=== PATIENT | male | born 1955 | race Caucasian/White ===

== ENCOUNTER → 2016-06-29 | Outpatient (CLI) | payer OTHER ==
[~2016-06-29] MED LIST: ACET1TAB84 PO; ASPEC81 PO; FEXO1TAB46 PO; FLUT0.15 NAE; LATA0.009 OPB; MULT-506 PO; OMEP40CA PO; SENNTAB23
== END | disposition home or self-care (01) ==
LOC: C.LABBC 12:09
PROVIDERS: ATTEND Nurse Practitioner Adult Health
DX: Z11.59 Encounter for screening for other viral diseases (principal); Z85.46 Personal history of malignant neoplasm of prostate

== ENCOUNTER → 2016-08-28 | Outpatient (CLI) | payer OTHER ==
[2016-08-28 13:44] LABS: BASO % 0.4 %; BASO ABS # 0.02 K/uL (0-0.2); COMPLETE YES; EOS % 2.2 %; HEMATOCRIT 40.2 % (42-52); IG% 0.2 %; LYMPH % 27.6 %; MEAN CELL VOLUME 93.9 fL (80-100); MEAN CORPUSCULAR HEMOGLOBIN 31.8 pg (25-34); MEAN CORPUSCULAR HGB CONC 33.8 g/dl (32-36); MEAN PLATELET VOLUME 9.6 fL (7.4-10.4); NEUT % 56.6 %; PLATELET COUNT 219 K/uL (130-400); RED BLOOD COUNT 4.28 M/uL (4.7-6.1); WHITE BLOOD COUNT 5.08 K/uL (4.8-10.8)
[2016-08-28 14:51] LABS: ALT/SGPT 37 U/L (12-78); BLOOD UREA NITROGEN 11 mg/dl (7-18); BUN/CREATININE RATIO 13.3 (10-20); CARBON DIOXIDE 27 mmol/L (21-32); CHLORIDE 108 mmol/L (98-107); CHOLESTEROL 193 mg/dl (0-200); CREATININE 0.85 mg/dl (0.60-1.40); GLUCOSE 107 mg/dl (70-99); POTASSIUM 3.9 mmol/L (3.5-5.1); SODIUM 142 mmol/L (136-145)
[2016-08-28 14:57] LABS: ALB/GLOB RATIO 0.9 (0.9-2); ALKALINE PHOSPHATASE 80 U/L (45-117); AST/SGOT 23 U/L (15-37); HDL CHOLESTEROL 32 mg/dl; LDL CHOLESTEROL CALCULATED 105 mg/dl; TRIGLYCERIDES 279 mg/dl (0-150); VERY LOW DENSITY LIPOPROT CALC 56 mg/dl
[2016-08-28 17:35] LABS: CALCIUM 8.6 mg/dl (8.5-10.1)
== END | disposition home or self-care (01) ==
LOC: C.LABBC 10:46
PROVIDERS: ATTEND Nurse Practitioner Adult Health
DX: D64.9 Anemia, unspecified (principal); E78.5 Hyperlipidemia, unspecified

== ENCOUNTER → 2016-09-17 | Outpatient (CLI) | payer OTHER | END | disposition home or self-care (01) | LOC: C.LABBC 14:17 | PROVIDERS: ATTEND Urology | DX: C61 Malignant neoplasm of prostate (principal) ==

== ENCOUNTER → 2017-04-23 | Outpatient (CLI) | payer OTHER ==
[2017-04-23 13:54] LABS: BASO % 0.4 %; BASO ABS # 0.02 K/uL (0-0.2); EOS % 1.9 %; EOS ABS # 0.09 K/uL (0-0.5); HEMATOCRIT 41.7 % (42-52); HEMOGLOBIN 14.2 g/dL (14.0-18.0); IG# 0.01 K/uL (0.00-0.02); LYMPH % 26.7 %; LYMPH ABS # 1.24 K/uL (1.2-3.4); MEAN CELL VOLUME 92.5 fL (80-100); MEAN CORPUSCULAR HEMOGLOBIN 31.5 pg (25-34); MEAN CORPUSCULAR HGB CONC 34.1 g/dl (32-36); MEAN PLATELET VOLUME 9.8 fL (7.4-10.4); MONO % 14.6 %; MONO ABS # 0.68 K/uL (0.11-0.59); NEUT % 56.2 %; NEUT ABS # 2.61 K/uL (1.4-6.5); PLATELET COUNT 234 K/uL (130-400); RED CELL DISTRIBUTION WIDTH CV 12.9 % (11.5-14.5); RED CELL DISTRIBUTION WIDTH SD 43.5 fL (36.4-46.3); WHITE BLOOD COUNT 4.65 K/uL (4.8-10.8)
[2017-04-23 14:00] LABS: HEMOGLOBIN A1C 6.2 % (4.5-5.6)
[2017-04-23 14:23] LABS: ALBUMIN 3.7 gm/dl (3.4-5.0); ALT/SGPT 52 U/L (12-78); AST/SGOT 28 U/L (15-37); BLOOD UREA NITROGEN 13 mg/dl (7-18); CALCIUM 8.6 mg/dl (8.5-10.1); CARBON DIOXIDE 29 mmol/L (21-32); CREATININE 0.78 mg/dl (0.60-1.40); GLUCOSE 103 mg/dl (70-99); POTASSIUM 4.4 mmol/L (3.5-5.1); SODIUM 138 mmol/L (136-145)
[2017-04-23 14:34] LABS: ALKALINE PHOSPHATASE 99 U/L (45-117); TOTAL PROTEIN 7.8 gm/dl (6.4-8.2)
== END | disposition home or self-care (01) ==
LOC: C.LABBC 10:28
PROVIDERS: ATTEND Nurse Practitioner Adult Health
DX: R20.0 Anesthesia of skin (principal); R20.2 Paresthesia of skin; D64.9 Anemia, unspecified

== ENCOUNTER → 2017-05-20 | Outpatient (CLI) | payer OTHER | END | disposition home or self-care (01) | LOC: C.PATHSPEC 17:23 | PROVIDERS: ATTEND Podiatrist Foot & Ankle Surgery | DX: B07.9 Viral wart, unspecified (principal) ==

== ENCOUNTER → 2017-05-27 | Outpatient (CLI) | payer OTHER | END | disposition home or self-care (01) | LOC: C.LABBC 12:58 | PROVIDERS: ATTEND Urology | DX: C61 Malignant neoplasm of prostate (principal) ==

== ENCOUNTER → 2017-06-03 | Outpatient (CLI) | payer OTHER ==
[2017-06-03 17:17] LABS: BASO % 0.4 %; BASO ABS # 0.02 K/uL (0-0.2); EOS % 1.3 %; EOS ABS # 0.07 K/uL (0-0.5); HEMATOCRIT 42.5 % (42-52); HEMOGLOBIN 14.2 g/dL (14.0-18.0); IG# 0.01 K/uL (0.00-0.02); LYMPH % 25.1 %; LYMPH ABS # 1.31 K/uL (1.2-3.4); MEAN CELL VOLUME 93.6 fL (80-100); MEAN CORPUSCULAR HEMOGLOBIN 31.3 pg (25-34); MEAN CORPUSCULAR HGB CONC 33.4 g/dl (32-36); MEAN PLATELET VOLUME 9.7 fL (7.4-10.4); MONO % 12.7 %; MONO ABS # 0.66 K/uL (0.11-0.59); NEUT % 60.3 %; NEUT ABS # 3.14 K/uL (1.4-6.5); PLATELET COUNT 238 K/uL (130-400); RED CELL DISTRIBUTION WIDTH CV 13.2 % (11.5-14.5); RED CELL DISTRIBUTION WIDTH SD 45.2 fL (36.4-46.3); WHITE BLOOD COUNT 5.21 K/uL (4.8-10.8)
== END | disposition home or self-care (01) ==
LOC: C.LABBC 12:52
PROVIDERS: ATTEND Nurse Practitioner Family
DX: R51 Headache (principal); R53.83 Other fatigue

== ENCOUNTER → 2017-07-02 | Outpatient (CLI) | payer OTHER ==
[~2017-07-02] MED LIST changes: +DICL50TA3 PO; +LOSA1TAB PO
--- NOTE | 2017-07-02 12:40 | DIAGNOSTIC IMAGING REPORT ---
L-SPINE FLEX/EXT BENDING MIN 6 CLINICAL HISTORY: 61 years-old Male presenting with LUMBAGO, LUMBAR PAIN. TECHNIQUE: Frontal, bilateral oblique, lateral, and coned in lateral views of the lumbar spine were obtained. COMPARISON: 03/22/2013. FINDINGS: Post surgical changes of bilateral transpedicular screw and jesus alberto fixation of L2-L5 with interbody spacer at L4-5. Bunionectomy defects from L2 to L5 suggested. There is slight anterolisthesis of L3 on L4, unchanged. No gross evidence of hardware breakage. No significant change in alignment. Persistent levocurvature of the lumbar spine centered at L1-2. Allowing for scoliotic curvature, vertebral bodies maintain normal heights. Intervertebral disc height loss at several levels as well as anterior osteophytosis and vacuum disc phenomenon noted. Facet arthropathy suggested in the lower lumbar spine. Is difficult to determine the degree of osseous neural foraminal narrowing, though this is suspected at L5-S1. Coil surgical wicho project over the left lower quadrant likely indicating prior hernia repair. IMPRESSION: 1. Surgical changes of L2-L5 posterior fusion with laminectomy defects. No change in alignment or gross hardware complication. 2. No radiographic evidence of compression deformity. 3. Osseous neural foraminal narrowing may be present at L5-S1. Evaluation for neural foraminal narrowing complicated by levocurvature of the spine. Electronically signed by: Satya Vickers M.D. 07/02/2017 12:39 PM Dictated Date/Time: 07/02/2017 12:19 PM
== END | disposition home or self-care (01) ==
LOC: C.RADBC 12:02
PROVIDERS: ATTEND Physician Assistant
DX: M54.16 Radiculopathy, lumbar region (principal); Z98.1 Arthrodesis status; M99.73 Connective tissue and disc stenosis of intervertebral foramina of lumbar region

== ENCOUNTER → 2017-07-15 | Outpatient (CLI) | payer OTHER ==
[~2017-07-15] VITALS: Ht 180.3 cm; Wt 89.2 kg
[~2017-07-15] MED LIST changes: -SENNTAB23
[2017-07-15 15:36] VITALS: BP 159/78; PULSE 79; Ht 180.3 cm; Wt 89.2 kg
== END | disposition home or self-care (01) ==
LOC: C.NEUR 15:15
PROVIDERS: ATTEND Internal Medicine Pulmonary Disease
DX: G47.33 Obstructive sleep apnea (adult) (pediatric) (principal); Z72.821 Inadequate sleep hygiene; K21.9 Gastro-esophageal reflux disease without esophagitis; D64.9 Anemia, unspecified; M19.90 Unspecified osteoarthritis, unspecified site; Z85.46 Personal history of malignant neoplasm of prostate; Z98.1 Arthrodesis status; R53.83 Other fatigue

== ENCOUNTER → 2017-07-16 | Outpatient (CLI) | payer OTHER ==
--- NOTE | 2017-07-16 13:57 | DIAGNOSTIC IMAGING REPORT ---
ULTRASOUND SOFT TISSUES NECK CLINICAL HISTORY: Neck mass. This is hard and red, and has reportedly been present for one week. COMPARISON STUDY: No priors. FINDINGS: Real-time, grayscale, and color flow sonography of a palpable lump in the midline of the neck is performed at the indicated site of interest. There is a complex nonvascular lesion at this site, which measures 1.5 x 1.1 x 1.2 cm. This is located approximately 2 mm from the dermal surface. IMPRESSION: There is a complex nonvascular lesion at the site of interest which measures up to 1.5 cm. Given that this has reportedly been present for only one week, this likely represents a small hematoma, abscess, or infected cyst. Clinical correlation will be essential and clinical follow-up to resolution is recommended. If this fails to resolve over a reasonable time course then a repeat ultrasound with fine aspiration should be considered. Electronically signed by: Guy Henao M.D. 07/16/2017 1:56 PM Dictated Date/Time: 07/16/2017 1:47 PM
== END | disposition home or self-care (01) ==
LOC: C.ULTR 13:16
PROVIDERS: ATTEND Nurse Practitioner Family
DX: R22.1 Localized swelling, mass and lump, neck (principal)

== ENCOUNTER → 2017-07-19 | Outpatient (CLI) | payer OTHER | END | disposition home or self-care (01) | LOC: C.LABSPEC 17:34 | PROVIDERS: ATTEND Nurse Practitioner Family | DX: L72.3 Sebaceous cyst (principal) ==

== ENCOUNTER → 2017-08-03 | Outpatient (CLI) | payer OTHER ==
--- NOTE | 2017-08-04 05:52 | SPLIT NIGHT TECHNICIAN REPORT ---
[facility] Split Night Polysomnogram - Registered Nurse Practitioner Report Study date: 08/03/2017 Referring Physician: Dr. Yayo Oliver DO Name: ANYA GUERRERO Registered Nurse Practitioner: SRI Garcia. Date of : 1955 Height: 62 years, Height 5' 11" Sex: Male Weight: 196 lbs Age: 62 BMI: Medications: 27.33 Omeprazole 20 mg, Fluticasone Propionate 50 MCG/ACT, Voltaren 75 mg, Losartan Potassium 25 mg, Polyethylene Glycol 3350, Montelukast Sodium 10 mg, Aspirin 81 mg, Latanoprost 0.005%, Multi Vitamins, Tylenol Arthritis 650 mg Patient History 62 yr. old male here for a possible split night sleep study if AHI >15. Patient complains of loud snoring, witnessed apneas, EDS and HTN. Patients ESS 17/24. Parameters Monitored NPSG: E1-M2, E2-M1, Fp1-M2, Fp2-M1, F3-M2, F4-M2, F4-M1, C3-M2, C4-M2, C4-M1, O1-M2, O2-M2, O2-M1, T3-M2, T4-M1, P3-M2, P4-M1, CHIN1, CHIN2, HR, EKG, Legs, PFLOW, SNOR, FLOW, CFLOW, Tidal Volume, THOR, ABDO, SpO2, PLTH, CPRESS, ETCO2 Wave, ETCO2, pH SLEEP SUMMARY DATA DIAGNOSTIC TREATMENT Lights Out: 10:04:29 PM 12:30:29 AM Lights On: 12:22:59 AM 5:41:29 AM Total Recording Time (TRT): 138.5 min. 311.5 min. Total Sleep Time (TST): 126.0 min. 303.0 min. NREM Time: 126.0 min. 231.0 min. REM Time: 0.0 min. 72.0 min. Sleep Period Time (SPT): 131.5 min. 310.5 min. Sleep Efficiency (SE): 91 % 97 % Sleep Latency: 7.0 min. 0.5 min. Arousal Index: 5.2 5.9 PAP Treatment Levels: 4, 5, 6, 7, 8, 9, 10, 11, 12, 13, 14 * Optimal Pressure(s) SLEEP STAGING DATA DIAGNOSTIC TREATMENT Duration (min) TST % Duration (min) TST % Stage Wake: 12.5 min. -- 8.0 min. -- WASO: 5.5 min. -- 7.5 min. -- NREM: 126.0 min. 100 % 231.0 min. 76 % Stage N1: 6.5 min. 5 % 12.5 min. 4 % Stage N2: 102.0 min. 81 % 205.5 min. 68 % Stage N3: 17.5 min. 14 % 13.0 min. 4 % REM: 0.0 min. 0 % 72.0 min. 24 % POSITIONAL DATA Event Count Index Event Count Index Supine: 7 29 53 36.2 Supine NREM: 7 29.0 16 23.5 Supine REM: N/A N/A 37 47 Non-Supine: 36 19.4 43 12.0 Non-Supine NREM: 36 19.4 25 7.9 Non-Supine REM: N/A N/A 18 43.2 AROUSAL SUMMARY DATA: Event Count Index Event Count Index Apnea Arousals: 0 1.4 2 4.6 Hypopnea Arousals: 2 1.0 5 1.0 Snore Arousals: 5 2.4 3 0.6 PLM Arousals: 1 0.5 3 0.6 Non-Specific Arousals: 1 0.5 2 0.4 Total Arousals: 11 5.2 30 5.9 MYOCLONUS (PLM) Event Count Index Event Count Index PLM: 6 2.9 11 2.2 PLM AROUSAL: 1 0.5 3 0.6 PLM W/O AROUSAL 6 2.9 8 1.6 PLM W/RESP EVENT 0 0.0 0 0.0 MYOCLONUS (PLM) Event Count Index Event Count Index LM: 4 11.0 41 8.1 LM AROUSAL: 4 1.9 16 3.2 LM W/O AROUSAL LM W/RESP EVENT LM NON SPECIFIC 20 9.5 27 5.3 HEART RATE DATA DIAGNOSTIC TREATMENT Sleep (bpm): 58 54 REM (bpm): N/A 93 NREM (bpm): 92 94 Tachycardia Count: 0 0 Tachycardia Duration: 0.00 0 Bradycardia Count: 0 0 Bradycardia Duration: 0.00 0 DIAGNOSTIC PORTION TREATMENT PORTION RESPIRATORY DATA Event Count Index Event Count Index AHI: -- 20.5 -- 19.0 RDI: -- 20.5 -- 19 Obstructive Apnea: 3 1.4 15 3.0 Central Apnea: 0 0.0 6 1.2 Mixed Apnea: 0 0.0 2 0.4 Hypopnea: 40 19.0 73 14.5 RERA: 0 0.0 0 0.0 Total Apneas: 3 1.4 23 4.6 RESPIRATORY DATA REM NREM SLEEP REM NREM SLEEP Supine Position: Obstructive Apneas: N/A 0 0 1 0 1 Central Apneas: N/A 0 0 0 4 4 Mixed Apneas: N/A 0 0 1 1 2 Hypopneas: N/A 7 7 35 11 46 RERA N/A 0 0 0 0 0 Total Supine Events: N/A 7 7 37 16 53 Supine AHI: N/A 29.0 29 47 23.5 36.2 Supine RDI: N/A 29.0 29.0 47.2 23.5 36.2 REM NREM SLEEP REM NREM SLEEP Non-Supine Position: Obstructive Apneas: N/A 3 3 11 3 14 Central Apneas: N/A 0 0 0 2 2 Mixed Apneas: N/A 0 0 0 0 0 Hypopneas: N/A 33 33 7 20 27 RERA N/A 0 0 0 0 0 Total Supine Events: N/A 36 36 18 25 43 Supine AHI: N/A 19.4 19.4 43.2 7.9 12.0 Supine RDI: N/A 19.4 19.4 43.2 7.9 12.0 OXYGEN DESTAURATION DATA: Event Count Index Event Count Index REM Desaturations: N/A N/A 35 29.2 NREM Desaturations: 43 20.5 35 9.1 SNORE DATA DIAGNOSTIC TREATMENT Snore Time: 2.0 12:30:59 AM Snore TST%: 1 2 Snore Arousal Count: 5 3 Snore Arousal Index: 2.4 0.6 Desaturation Event Summary: Minimum %SpO2 Event Count Mean/Min/Max Duration(sec.) Desaturation Index % Time In Bed > 90 112 31.0 / 9.5 / 60.0 16.5 90.5 86 - 90 12 20.8 / 9.5 / 29.8 18.3 8.7 81 - 85 0 N/A 0.0 0.7 76 - 80 0 N/A 0.0 0.0 71 - 75 0 N/A 0.0 0.0 66 - 70 0 N/A 0.0 0.0 61 - 65 0 N/A 0.0 0.0 56 - 60 0 N/A 0.0 0.0 51 - 55 0 N/A 0.0 0.0 < 50 0 N/A 0.0 0.0 OXYGEN SATURATION DATA DIAGNOSTIC TREATMENT SpO2 Mean Sleep: 92 % 94 % SpO2 Mean REM: N/A % 93 % SpO2 Mean NREM: 92 % 94 % SpO2 Minimum Sleep: 80 % 81 % SpO2 Minimum REM: N/A % 81 % SpO2 Minimum NREM: 80 % 86 % Time Below 90% (TST): 11.9 9.3 Time Below 88% (TST): 3.9 4.5 Total REM NREM Awake <50% 0.0 min. 0.0 min. 0.0 min. 0.0 min. 51 - 60% 0.0 min. 0.0 min. 0.0 min. 0.0 min. 61 - 70% 0.0 min. 0.0 min. 0.0 min. 0.0 min. 71 - 80% 0.1 min. 0.0 min. 0.1 min. 0.0 min. 81 - 90% 42.6 min. 10.7 min. 25.6 min. 6.3 min. 91 - 100% 406.8 min. 61.3 min. 331.3 min. 14.2 min. Average 93 93 93 92 Minimum SpO2 80 81 80 87 Desaturation Event Index 15.2 29.2 13.1 5.9 # Desat. Events below 89% 39 9 30 0 Time(%) with Saturation below 89% 3.2 1.2 1.8 0.2 Time(min.) with Saturation below 89% 14.6 5.6 8.3 0.7 Recording Registered Nurse Practitioner Comments: Mr. Guerrero slept in the left and supine positions. Cardiac arrhythmia PVC's and PLMs noted. No bruxism noted. Snoring was noted and scored as a 3 on a scale of 0 through 5. (0=no snoring, 5=snoring loud enough to be heard through a closed door or down the [place] way) At 12:30 am , Mr. Guerrero met specific Split-Night criteria during the diagnostic portion of this study. CPAP was initiated at +4 CMH2O room air and up-titrated to a level of +14 CMH2O Cflex 1. Quick increases were made towards the end of the study due to REM supine. A medium [place] and Learn[employer]kel simplus, was used during titration. Mr. Guerrero did not wake to use the restroom during the night.Mr. Guerrero stated, "(Example) I did not sleep as well as I do when I am in my own bed". The final report will be interpreted and signed by a sleep physician. The completed physician report will then be placed in the patient medical record. Therapy Event: Therapy (cm H20) 0 4 5 6 7 8 Total Time at Pressure (min.) 138.5 7.5 40.0 68.7 7.5 31.7 TST at Pressure (min.) 126.0 7.0 39.5 65.7 7.5 30.2 # Periods 1 1 1 1 1 1 Sleep Onset (min.) 7.0 0.5 0.0 0.0 0.0 0.0 REM Onset (min.) N/A N/A N/A 68.0 0.0 0.0 Sleep Efficiency % 91 93 98 95 100 95 Wakefulness (%) 9.0 6.7 1.3 4.4 0.0 4.7 Wakefulness (min.) 12.5 0.5 0.5 3.0 0.0 1.5 NREM 1 (%) 4.7 13.4 1.3 5.8 0.0 7.9 NREM 1 (min.) 6.5 1.0 0.5 4.0 0.0 2.5 NREM 2 (%) 73.6 80.0 97.5 88.9 0.0 34.3 NREM 2 (min.) 102.0 6.0 39.0 61.0 0.0 10.9 NREM 3 (%) 12.6 0.0 0.0 0.0 0.0 0.0 NREM 3 (min.) 17.5 0.0 0.0 0.0 0.0 0.0 REM (%) 0.0 0.0 0.0 0.9 100.0 53.1 REM (min.) 0.0 0.0 0.0 0.6 7.5 16.9 # Arousals 11 0 8 7 0 2 Arousal Index 5.2 0.0 12.2 6.4 0.0 4.0 # Snore 96 0 76 58 9 25 Snore Index 45.7 0.0 115.5 53.0 71.9 49.6 AHI 20.5 17.2 9.1 11.0 63.9 29.8 AHI Supine 29.0 N/A N/A N/A N/A N/A AHI Non-Supine 19.4 17.2 9.1 11.0 63.9 29.8 NREM AHI 20.5 17.2 9.1 9.2 N/A 31.4 REM AHI N/A N/A N/A 192.2 63.9 28.5 RDI 20.5 17.2 9.1 11.0 63.9 29.8 # Obstructive 3 0 0 4 5 5 # Central Ap 0 0 0 1 0 1 # Mixed 0 0 0 0 0 0 # Hypopneas 40 2 6 7 3 9 RERAS 0 0 0 0 0 0 Total Respiratory Events 43 2 6 12 8 15 Time Below SpO2 89.00% (min.) 7.6 0.0 0.0 0.6 1.2 0.2 Mean NREM SpO2 (%) 92 92 93 93 N/A 94 Mean REM SpO2 (%) N/A N/A N/A 90 92 94 Mean Sleep SpO2 (%) 92 92 93 93 92 94 Min NREM SpO2 (%) 80 90 90 86 N/A 88 Min REM SpO2 (%) N/A N/A N/A 88 85 91 Position Supine (min.) 14.5 0.0 0.0 0.0 0.0 0.0 Position Non-supine (min.) 111.5 7.0 39.5 65.7 7.5 30.2 LM Index Sleep 13.8 0.0 30.4 15.5 0.0 6.0 LM Index NREM 13.8 0.0 30.4 15.7 N/A 0.0 LM Index REM N/A N/A N/A 0.0 0.0 10.7 Mean Heart Rate (bpm) 58 57 57 55 56 54 Min Heart Rate (bpm) 52 55 54 49 50 47 Therapy (cm H20) 9 10 11 12 13 14 Total Time at Pressure (min.) 77.4 13.1 7.6 16.5 5.2 35.8 TST at Pressure (min.) 76.9 13.1 7.6 16.0 4.7 34.8 # Periods 1 1 1 1 1 1 Sleep Onset (min.) 0.0 0.0 0.0 0.0 0.0 0.0 REM Onset (min.) 71.1 0.0 0.0 0.0 0.0 0.3 Sleep Efficiency % 99 100 100 97 90 97 Wakefulness (%) 0.6 0.0 0.0 3.0 9.6 2.8 Wakefulness (min.) 0.5 0.0 0.0 0.5 0.5 1.0 NREM 1 (%) 1.9 3.8 0.0 3.0 3.7 5.0 NREM 1 (min.) 1.5 0.5 0.0 0.5 0.2 1.8 NREM 2 (%) 72.5 0.0 0.0 0.0 0.0 90.8 NREM 2 (min.) 56.1 0.0 0.0 0.0 0.0 32.5 NREM 3 (%) 16.8 0.0 0.0 0.0 0.0 0.0 NREM 3 (min.) 13.0 0.0 0.0 0.0 0.0 0.0 REM (%) 8.2 96.2 100.0 93.9 86.7 1.4 REM (min.) 6.3 12.6 7.6 15.5 4.5 0.5 # Arousals 5 2 1 2 0 3 Arousal Index 3.9 9.2 7.9 7.5 0.0 5.2 # Snore 21 7 5 4 1 15 Snore Index 16.4 32.0 39.7 15.0 12.7 25.9 AHI 9.4 50.4 47.6 33.8 63.6 17.2 AHI Supine 61.2 50.4 47.6 33.8 63.6 17.2 AHI Non-Supine 0.0 N/A N/A N/A N/A N/A NREM AHI 3.4 120.0 N/A 120.0 309.0 15.7 REM AHI 75.8 47.6 47.6 31.0 53.0 120.0 RDI 9.4 50.4 47.6 33.8 63.6 17.2 # Obstructive 0 1 0 0 0 0 # Central Ap 0 0 0 0 0 4 # Mixed 0 1 0 0 0 1 # Hypopneas 12 9 6 9 5 5 RERAS 0 0 0 0 0 0 Total Respiratory Events 12 11 6 9 5 10 Time Below SpO2 89.00% (min.) 1.3 2.3 0.7 0.0 0.0 0.0 Mean NREM SpO2 (%) 94 91 N/A 97 93 95 Mean REM SpO2 (%) 92 93 93 94 94 95 Mean Sleep SpO2 (%) 94 92 93 94 94 95 Min NREM SpO2 (%) 91 89 N/A 96 92 90 Min REM SpO2 (%) 81 83 84 89 91 93 Position Supine (min.) 11.8 13.1 7.6 16.0 4.7 34.8 Position Non-supine (min.) 65.2 0.0 0.0 0.0 0.0 0.0 LM Index Sleep 5.5 4.6 7.9 3.8 0.0 3.4 LM Index NREM 5.1 0.0 N/A 0.0 0.0 3.5 LM Index REM 9.5 4.8 7.9 3.9 0.0 0.0 Mean Heart Rate (bpm) 53 51 51 51 53 52 Min Heart Rate (bpm) 46 45 46 45 49 47
== END | disposition home or self-care (01) ==
LOC: C.NEUR 21:00
PROVIDERS: ATTEND Internal Medicine Pulmonary Disease
DX: G47.33 Obstructive sleep apnea (adult) (pediatric) (principal); Z72.821 Inadequate sleep hygiene

== ENCOUNTER 2018-05-27 10:20 | Inpatient (IN) ==
--- NOTE | 2018-05-27 13:58 | Anesthesiology Consultation ---
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 History Surgery Operation Date: 05/27/18 10:20 Proposed Procedures p Left Shoulder Incision and Drainage - Patel Miguel DO Height/Weight Height: 1.8 m Weight: 83.9 kg Allergies Allergy/AdvReac Type Severity Reaction Status Date / Time amoxicillin Allergy Unknown RECTAL Verified 04/28/18 08:28 BLEEDING clavulanic acid Allergy Unknown RECTAL Verified 04/28/18 08:28 BLEEDING Medications Home Medications Medication Instructions Recorded Confirmed Last Taken aspirin 81 mg tablet,delayed 81 mg PO QPM 12/13/17 04/28/18 04/21/18 release fexofenadine 180 mg tablet 180 mg PO QPM 12/13/17 04/28/18 04/27/18 losartan 25 mg tablet 25 mg PO QAM 12/13/17 04/28/18 04/27/18 multivitamin tablet 1 tab PO QAM 12/13/17 04/28/18 04/27/18 omeprazole 40 mg capsule,delayed 40 mg PO QAM 12/13/17 04/28/18 04/28/18 04:30 release polyethylene glycol 3350 17 1 gm PO QAM gm 12/13/17 04/28/18 04/27/18 gram/dose oral powder latanoprost 0.005 % eye drops 1 drops OP QPM 01/24/18 04/28/18 04/27/18 acetaminophen [Tylenol] 325 mg PO Q6H PRN 04/26/18 04/28/18 Unknown oxycodone-acetaminophen 1 tab PO Q6H PRN #40 tab 04/28/18 04/28/18 Unknown Past Medical History Medical History Hyperglycemia Arthritis Glaucoma Hypertension Chronic back pain Degenerative disc disease GERD (gastroesophageal reflux disease) Lumbar stenosis Osteoarthritis Prostate cancer Scoliosis Sleep apnea CPAP Past Family History Family History Father Coronary heart disease Parkinson disease Sister Family history of diabetes mellitus Mother Family history of diabetes mellitus Other No pertinent family history Past Surgical History Surgical History S/P arthroscopy of shoulder Left shoulder on 04/28/2018 History of cardiac cath APPROX 10 YEARS AGO - [facility] - CP - NO STENTS/ANGIOPLASTY - DOES NOT FOLLOW W/ CARDIO History of colonoscopy History of esophagogastroduodenoscopy (EGD) History of herniorrhaphy X 2; UMBILICAL History of lumbar spinal fusion History of prostatectomy LAPAROSCOPIC History of tonsillectomy History of tooth extraction History of total shoulder replacement RT Past Anesthesia History No Hx of Anesthesia Complications and No Family Hx of Anesthesia Complications History of PONV No Motion Sickness Screening History of Motion Sickness: No Social History Smoking Status: Never smoker Hx Alcohol Use: No Hx Substance Use: No substance use type: does not use Exercise / Class Metabolic Activity II 4-5 Yardwork/Stairs/Walk up hill Testing Electrocardiogram Date: 04/22/18 Findings: + NSR @ (71) Laboratory Results Laboratory Tests 04/22/18 04/22/18 12:28 12:28 WBC 4.65 L Hgb 13.4 L Hct 39.6 L Plt Count 243 Sodium 141 Potassium 3.9 Chloride 108 H Carbon Dioxide 29 BUN 17 Creatinine 0.77 Glucose 90
--- NOTE | 2018-05-27 16:00 | History & Physical Report ---
Date of Service May 27, 2018 Assessment & Plan (1) Abscess of left shoulder: We will proceed with an I&D of the portal site today. Afterwards I will probably keep him overnight for a couple doses of IV antibiotics. He can then be discharged to home tomorrow on oral antibiotics. He and his understand the risks benefits and alternatives to the procedure and are electing to proceed. Present on Admission?: Yes History of Present Illness Primary Care Provider: Sergey Timmons, III, LAUNDRY WORKER Abhijit is a pleasant 62-year-old male who underwent a arthroscopic medium-sized rotator cuff repair on April 28, 2018. He initially was doing well. Unfortunately he is noticed some redness and swelling of his far anterior portal site. He has been able to continue to participate well with physical therapy but the redness at the portal sites been concerning. He came back to my office and I started him on Keflex. I also aspirated it in the office. Unfortunately the abscess has returned. It is completely superficial directly at the anterior portal. He was admitted to the hospital for an I&D and some IV antibiotics. Allergies Allergy/AdvReac Type Severity Reaction Status Date / Time amoxicillin Allergy Unknown RECTAL Verified 04/28/18 08:28 BLEEDING clavulanic acid Allergy Unknown RECTAL Verified 04/28/18 08:28 BLEEDING Home Medications Home Medications Medication Instructions Recorded Confirmed Type aspirin 81 mg tablet,delayed 81 mg PO QPM 12/13/17 05/27/18 History release fexofenadine 180 mg tablet 180 mg PO QPM 12/13/17 05/27/18 History losartan 25 mg tablet 25 mg PO QAM 12/13/17 05/27/18 History multivitamin tablet 1 tab PO QAM 12/13/17 05/27/18 History omeprazole 40 mg capsule,delayed 40 mg PO QAM 12/13/17 05/27/18 History release polyethylene glycol 3350 17 1 gm PO QAM gm 12/13/17 05/27/18 History gram/dose oral powder latanoprost 0.005 % eye drops 1 drops OP QPM 01/24/18 05/27/18 History acetaminophen [Tylenol] 325 mg PO Q6H PRN 04/26/18 05/27/18 History oxycodone-acetaminophen 1 tab PO Q6H PRN #40 tab 04/28/18 05/27/18 Rx Past Med/Surg History Medical History Hyperglycemia Arthritis Glaucoma Hypertension Chronic back pain Degenerative disc disease GERD (gastroesophageal reflux disease) Lumbar stenosis Osteoarthritis Prostate cancer Scoliosis Sleep apnea CPAP Surgical History S/P arthroscopy of shoulder Left shoulder on 04/28/2018 History of cardiac cath APPROX 10 YEARS AGO - [facility] - CP - NO STENTS/ANGIOPLASTY - DOES NOT FOLLOW W/ CARDIO History of colonoscopy History of esophagogastroduodenoscopy (EGD) History of herniorrhaphy X 2; UMBILICAL History of lumbar spinal fusion History of prostatectomy LAPAROSCOPIC History of tonsillectomy History of tooth extraction History of total shoulder replacement RT Family History Father Coronary heart disease Parkinson disease Sister Family history of diabetes mellitus Mother Family history of diabetes mellitus Other No pertinent family history Social History Communication Ability: Effective Beliefs That Will Affect Care: None marital status: Current Living Situation: Family current occupational status: employed current occupation: [employer] Other Information That Helps Us Care for You: No Feels Safe at Home: Yes Safety Concerns: Feels Safe At This Time Smoking Status: Never smoker Hx Alcohol Use: No Hx Substance Use: No Review of Systems All systems reviewed & are unremarkable except as noted in HPI & below Physical Exam Vital Signs (Past 24 Hours): Last Vital Signs Temp 36.8 C 05/27/18 15:00 Pulse 70 05/27/18 15:00 Resp 16 05/27/18 15:00 BP 121/79 05/27/18 15:00 Pulse Ox 96 05/27/18 15:00 Musculoskeletal: On physical examination of the left shoulder. The anterior portal site is red and indurated. It is painful to hard touch. The rest of the shoulder looks good. He has no signs of infection of the remainder of her shoulder.
[2018-05-27] MEDS ORDERED: BUPIVACAINE 0.25% 30 ML VIAL ONE (16:14)
[2018-05-27] MEDS ORDERED: EPINEPHrine INJ 1 MG/ML AMP ONE (16:14)
[2018-05-27] MEDS ORDERED: CEFAZOLIN 2,000 MG/15 ML IV PUSH IV ONE (16:25)
[2018-05-27] MEDS ORDERED: LIDOCAINE HCL 1% 20 ML VIAL ONE (16:42)
--- NOTE | 2018-05-27 16:58 | Operative Report ---
Post Operative Report Pre & Post Diagnosis Operation Date: 05/27/18 10:20 Pre-Op Diagnosis: Abscess left shoulder Post-Op Diagnosis: Abscess left shoulder Procedure Operation Date: 05/27/18 10:20 Actual Procedures p Left Shoulder Incision and Drainage(Left) - Patel Miguel DO Surgeon Patel Miguel DO Delivery And Installation Subcontractor None Estimated Blood Loss 10 Findings Consistent with Post-Op Diagnosis Specimens Abscess culture Indications Abhijit is a pleasant 62-year-old male who underwent a left shoulder arthroscopic rotator cuff repair 4 weeks ago. He initially was doing well but he began having redness pain and swelling of the anterior portal site. I saw him in the office and start him on Keflex. Unfortunately the abscess continued. He came over to the operating room today for a local I&D of the abscess. Description of Procedure On May 27, 2018 he arrived at [facility]. He was seen in the preoperative holding area and the operative extremity identified and signed. He was taken back to the operating room laid on table in supine position. This was done under strict local. The left shoulder was prepped and draped in sterile fashion. A timeout was done. The patient and the operative extremity was properly identified. The surrounding soft tissues were injected with quarter percent Marcaine with epinephrine. Once proper anesthesia has been obtained the anterior portal was incised with a knife. Cultures were taken. There was some purulent discharge from the abscess. It did not appear to go deep into the shoulder. The wound was irrigated with a liter of normal saline solution. The portal site was then closed with 3-0 nylon suture. He was then given 2 g of Ancef immediately. A soft dressing was placed. He was then taken back to his hospital room. He tolerated the procedure well. I attest to the content of the Intraoperative Record and any orders documented therein. Any exceptions are noted below.
[2018-05-28] MEDS: CEFAZOLIN 2000MG 2,000 MG/15 ML SYR IV SCH ×2 (00:08→08:09)
[2018-05-28] MEDS: OXYCODONE/ACETAMINOPHEN 5mg/325mg TAB PO PRN ×2 (00:34→08:49)
[2018-05-28] MEDS ORDERED: CEFAZOLIN 2000MG 2,000 MG/15 ML SYR IV SCH (06:00)
--- NOTE | 2018-05-28 07:03 | Orthopedic Progress Note ---
Date of Service May 28, 2018 Assessment & Plan (1) Abscess of left shoulder: Overall he is doing fairly well. He will get a another dose of Ancef before discharge. I wrote him for Keflex and doxycycline to take for 3 weeks for broad-spectrum coverage. We will wait and see with the cultures grow. I will see him in the office in about 10-14 days as previously scheduled. Present on Admission?: Yes Subjective Abhijit was seen and examined at bedside this morning. Overall is doing very well. He has much less pain in his shoulder now that he had yesterday. He was able to get some sleep last night. He has no complaints. Physical Exam Vital Signs (Past 24 Hours): Last Vital Signs Temp 36.7 C 05/28/18 03:36 Pulse 75 05/28/18 03:36 Resp 16 05/28/18 03:36 BP 125/75 05/28/18 03:36 Pulse Ox 98 05/28/18 03:36 Musculoskeletal: On physical examination of the left shoulder, the dressing is clean and dry. He is wearing a sling as instructed. He is neurovascular intact. Results & Data Laboratory Results Cultures at this point are still pending.
--- NOTE | 2018-05-28 07:04 | Discharge Summary ---
Date of Service May 28, 2018 Admission HPI Per Admitting Provider Abhijit is a pleasant 62-year-old male who underwent a arthroscopic medium-sized rotator cuff repair on April 28, 2018. He initially was doing well. Unfortunately he is noticed some redness and swelling of his far anterior portal site. He has been able to continue to participate well with physical therapy but the redness at the portal sites been concerning. He came back to my office and I started him on Keflex. I also aspirated it in the office. Unfortunately the abscess has returned. It is completely superficial directly at the anterior portal. He was admitted to the hospital for an I&D and some IV antibiotics. Discharge Data Procedures Performed Operation Date: 05/27/18 10:20 Actual Procedures p Left Shoulder Incision and Drainage(Left) - Patel Miguel DO Hospital Course (1) Abscess of left shoulder: On May 27, [address] [facility] in the hospital and underwent an I&D of an abscess of his left shoulder without complication. It was done under local anesthetic. Postoperatively he was started on Ancef and kept overnight for observation. He was given an additional 2 doses of Ancef postoperatively. On postop day #1 he was doing very well. He was not having much pain in the shoulder. I placed him on broad-spectrum coverage including doxycycline and Keflex. He was discharged home. I will see him in the office in 10-14 days as previously scheduled.
--- NOTE | 2018-06-01 11:12 | Coding Query ---
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 Please assist us with the question(s) below: Please place an X in the parenthesis (x). If other, please document the finding: Depth of Drainage: ( ) Skin ( X) Skin and Subcutaneous Tissue ( ) Skin, Subcutaneous Tissue and Muscle ( ) Skin, Subcutaneous Tissue, Muscle and Bone ( ) Other (please specify): Thank you Negar ALEJANDRA
== END 2018-05-28 09:55 | disposition home or self-care (01) | DRG 857 ==
LOC: 3W → PREINTOOBSV 13:39

== ENCOUNTER 2019-01-26 08:04 | Inpatient (IN) ==
--- NOTE | 2019-01-12 15:17 | PAT Medication Instructions ---
Medication Instructions Date of Service January 12, 2019 Home Medications Medication Instructions Recorded celecoxib 100 mg capsule 100 mg PO BID #60 cap 11/22/18 gabapentin 600 mg tablet 600 mg PO TID #90 tab 12/27/18 aspirin 81 mg tablet,delayed release 81 mg PO HS fexofenadine 180 mg tablet 180 mg PO QPM multivitamin tablet 1 tab PO QAM polyethylene glycol 3350 17 gram/dose oral powder 17 gm PO QAM latanoprost 0.005 % eye drops 1 drops OPB QPM celecoxib 100 mg capsule 100 mg PO BID gabapentin 600 mg tablet 600 mg PO TID losartan 25 mg PO QAM omeprazole 20 mg PO QAM ASK your surgeon for instructions celecoxib 100 mg capsule 100 mg PO BID ASK your prescriber and surgeon aspirin 81 mg tablet,delayed release 81 mg PO HS DO NOT take the morning of surgery multivitamin tablet 1 tab PO QAM polyethylene glycol 3350 17 gram/dose oral powder 17 gm PO QAM losartan 25 mg PO QAM Take morning of surgery With a small sip of water, OTHERWISE NOTHING TO EAT OR DRINK AFTER MIDNIGHT: gabapentin 600 mg tablet 600 mg PO TID omeprazole 20 mg PO QAM Take evening before surgery fexofenadine 180 mg tablet 180 mg PO QPM latanoprost 0.005 % eye drops 1 drops OPB QPM gabapentin 600 mg tablet 600 mg PO TID Other Notes If you have any questions please call us at [phone] or [phone] or [phone] or [phone]
--- NOTE | 2019-01-13 10:54 | Anesthesiology Consultation ---
Date of Service January 13, 2019 Assessment & Plan (1) Encounter for pre-operative examination: - Check BSG AM DOS Chart Review Chart Review: Pending: Refer to Additional Notes / Consult section (pending preop testing (labs, CXR)) and Patient seen in Pre Admission Testing Teaching & Discussion Pre-Anesthesia Teaching/Discussion Notes: Instructed NPO after midnight before surgery,except medications with 15 cc of water. Medication instructions provided according to the PAT guidelines. History Surgery Operation Date: 01/26/19 07:30 Proposed Procedures p L2-L3, L3-L4, L4-L5 Removal Instrumentation; T11-T12, T12-L1, L1-L2, L2-L3, L3-L4 Laminectomy and Fusion - Abhijit Foley, Height/Weight Height: 5 ft 11 in Weight: 87.4 kg Allergies Allergy/AdvReac Type Severity Reaction Status Date / Time amoxicillin AdvReac Intermediate RECTAL Verified 01/13/19 11:14 BLEEDING clavulanic acid AdvReac Intermediate RECTAL Verified 01/13/19 11:14 BLEEDING Medications Home Medications Medication Instructions Recorded Confirmed Last Taken aspirin 81 mg tablet,delayed 81 mg PO HS 12/13/17 01/06/19 05/26/18 21:00 release fexofenadine 180 mg tablet 180 mg PO QPM 12/13/17 01/06/19 05/26/18 21:00 multivitamin tablet 1 tab PO QAM 12/13/17 01/06/19 05/27/18 09:00 polyethylene glycol 3350 17 17 gm PO QAM gm 12/13/17 01/06/19 05/27/18 09:00 gram/dose oral powder latanoprost 0.005 % eye drops 1 drops OPB QPM 01/24/18 01/06/19 05/26/18 21:00 celecoxib 100 mg capsule 100 mg PO BID #60 cap 11/22/18 01/06/19 Unknown gabapentin 600 mg tablet 600 mg PO TID #90 tab 12/27/18 01/06/19 Unknown losartan 25 mg PO QAM 01/06/19 01/06/19 Unknown omeprazole 20 mg PO QAM 01/06/19 01/06/19 Unknown Past Medical History Medical History Prediabetes Arthritis Glaucoma Hypertension Chronic back pain Degenerative disc disease GERD (gastroesophageal reflux disease) controlled Lumbar stenosis Prostate cancer s/p prostatectomy Scoliosis Sleep apnea CPAP Exercise / Class Metabolic Activity II 4-5 Yardwork/Stairs/Walk up hill (one flight of stairs (no chest pain/no SOB)) Past Family History Family History Father Coronary heart disease Parkinson disease Sister Family history of diabetes mellitus Mother Family history of diabetes mellitus Lung cancer Brother Prostate cancer Grandfather (Paternal) Prostate cancer Other No pertinent family history Past Surgical History Surgical History History of cardiac cath 10+ years= no stents History of colonoscopy History of esophagogastroduodenoscopy (EGD) History of herniorrhaphy X3; UMBILICAL History of lumbar spinal fusion History of prostatectomy LAPAROSCOPIC History of rotator cuff surgery LEFT/RT History of shoulder surgery I&D LEFT SHOULDER History of tonsillectomy History of tooth extraction Past Anesthesia History No Hx of Anesthesia Complications (except PONV x 1 episode) and No Family Hx of Anesthesia Complications History of PONV No Hx of Motion Sickness and History of PONV (x1 episode) Social History Smoking Status: Never smoker Do You Dip or Chew Tobacco: No Hx Alcohol Use: No Hx Substance Use: No substance use type: does not use Review of Systems Reflux controlled. Patient denies chest pain, shortness of breath, dyspnea on exertion, cough, wheezing, palpitations. Physical Exam Vital Signs VITALS BP 126/80 P 66 TEMP 97.7 SP02 95%RA RESP 16 PHYSICAL Full neck and c-spine range of motion. Full TMJ range of motion. TMD 3.5 finger breaths Mallampati Score 2 Dentition: full dentures on lower Lungs: clear throughout to auscultation Cardiac: regular rate and rhythm, no murmurs noted Spine: normal Carotid arteries: negative bruit Extremities: no edema Trimmed broderick Testing Electrocardiogram Date: 04/22/18 Findings: + NSR @ (71) Stress Test Date: 11/24/17 Type: exercise Normal exercise ECHO without evidence of inducible ischemia. Grade I DD. Borderline cLVH. RVSP elevated at 30-40mmhg. 10.10 METS. EF 60-65%. 84%MPHR.
--- NOTE | 2019-01-13 11:47 | XRay Report ---
XR chest Pre-admission PA/Lat HISTORY: Preop. COMPARISON: Chest 11/23/2017. FINDINGS: Stable calcified granuloma within the right lung base. Otherwise, lungs are clear. The hear t is normal in size. No pleural effusions. No pneumothorax. Posterior fusion hardware within the lumb ar spine. IMPRESSION: No significant change compared to the prior study. No acute process. Electronically signed by: Valentin Macedo M.D. 01/13/2019 11:46 AM
[2019-01-13 13:37] LABS: Basophils # (auto) 0.02 K/uL (0-0.2); Basophils % (auto) 0.3 %; Eosinophils # (auto) 0.17 K/uL (0-0.5); Eosinophils % (auto) 2.5 %; Hemoglobin 13.3 g/dL (14.0-18.0); Immature Granulocytes # (auto) 0.02 K/uL (0.00-0.02); Immature Granulocytes % (auto) 0.3 %; Lymphocytes # (auto) 1.06 K/uL (1.2-3.4); Lymphocytes % (auto) 15.6 %; Mean Corpuscular Hemoglobin 31.7 pg (25-34); Mean Corpuscular Hgb Conc 33.3 g/dL (32-36); Mean Corpuscular Volume 95.2 fL (80-100); Mean Platelet Volume 9.7 fL (7.4-10.4); Monocytes # (auto) 0.84 K/uL (0.11-0.59); Monocytes % (auto) 12.4 %; Neutrophils # (auto) 4.69 K/uL (1.4-6.5); Neutrophils % (auto) 68.9 %; Platelet Count 247 K/uL (130-400); RDW Coefficient of Variation 12.8 % (11.5-14.5); RDW Standard Deviation 44.1 fL (36.4-46.3)
[2019-01-13 13:45] LABS: BUN Creatinine Ratio 16.2 (10-20); Creatinine Clr Calc Pharmacy 103.3 ml/min; Est GFR (African American) 111.5; Est GFR (Non-African American) 96.2; Potassium 3.8 mmol/L (3.5-5.1)
[2019-01-13 13:47] LABS: Partial Thromboplastin Time 26.1 Seconds (21.0-31.0); Prothrombin Time 10.1 Seconds (9.0-12.0)
--- NOTE | 2019-01-25 14:52 | History and Physical Report ---
DATE OF ADMISSION: 01/26/2019 CHIEF COMPLAINT: Back pain, lower extremity difficulty. HISTORY OF PRESENT ILLNESS: Abhijit is delightful. He is 63. He is compromised, but profound lumbar spine difficulty, kyphoscoliosis. Ongoing now for about a year in duration. 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 He is compromised. He cannot stand and ambulate appropriately. He reports no fevers, sweats, chills, or bowel or bladder compromise. PAST MEDICAL HISTORY: Prostate CA, usual childhood diseases. PAST SURGICAL HISTORY: Shoulder surgery, lumbar spine surgery, prostate surgery, tonsils. ALLERGIES: AUGMENTIN. FAMILY HISTORY: Stroke and lung CA. SOCIAL HISTORY: , 3 children. No alcohol, tobacco. Active lifestyle. REVIEW OF SYSTEMS: Twelve system review is positive for fatigue. EAR, NOSE AND THROAT: Negative. CARDIOVASCULAR: No chest pain, shortness of breath. No asthma, wheezing, shortness of breath. No nausea, vomiting. No urgency, frequency. He has back pain and cramping and muscle pain and inability to ambulate. MEDICATION: Multivitamin, Voltaren, losartan, MiraLax, aspirin. OBJECTIVE: GENERAL: He is alert, oriented. He is 5 feet 11 inches. He is 185. He is in distress. He cannot stand up. VITAL SIGNS: Blood pressure 140/80, pulse 80, respirations 16. HEENT: Pupils react to light and accommodation. Ear, nose and throat clear. CARDIAC: Normal S1, S2, no S3. LUNGS: Clear to auscultation. No rales, rhonchi, wheezing. ABDOMEN: Soft, nontender, bowel sounds present. He has decreased range of motion, pain with flexion, pain with extension, weakness of quadriceps function. IMPRESSION: Kyphoscoliosis spine with severe central stenosis L2-L3. PLAN: Includes removal of rods L2-L5 and fusion T11-L4 and laminectomy.
[~2019-01-26 08:04] MED LIST changes: -ACET1TAB84 PO; +ACETAMINOPHEN 1,000 MG/100 ML VIAL IV SCH; +ACETAMINOPHEN 500 MG TAB PO SCH; -ASPEC81 PO; +CEFAZOLIN 2000MG 2,000 MG/15 ML SYR IV SCH; -DICL50TA3 PO; -FEXO1TAB46 PO; -FLUT0.15 NAE; -LATA0.009 OPB; -LOSA1TAB PO; +LR 15ML/HR IV SCH; -MULT-506 PO; -OMEP40CA PO; +SODIUM CHLORIDE 0.9% 1,000 ML IV SCH
[2019-01-26] MEDS ORDERED: LIDOCAINE HCL 2% 2 ML VIAL/AMP(20MG/ML) INFIL ONE (09:01)
[2019-01-26] MEDS ORDERED: fentaNYL citrate 100 MCG/2 ML VIAL ONE ×4 (09:01→13:32)
[2019-01-26] MEDS ORDERED: MIDAZOLAM HCL 1 MG/ML 2ML VIAL ONE (09:01)
[2019-01-26] MEDS ORDERED: PROPOFOL IV EMULSION 10 MG/ML 20 ML VIAL IV ONE (09:01)
[2019-01-26] MEDS ORDERED: DEXAMETHASONE SOD INJ 4 MG/ML VIAL ONE (09:01)
[2019-01-26] MEDS ORDERED: ONDANSETRON INJ 2 MG/ML 2 ML VIAL ONE ×2 (09:01→13:53)
[2019-01-26] MEDS ORDERED: ROCURONIUM BROMIDE 10 MG/ML 5 ML VIAL ONE (09:01)
[2019-01-26] MEDS ORDERED: HYDROmorphone INJ 2 MG/ML SYR/VIAL ONE (09:02)
[2019-01-26] MEDS ORDERED: GELATIN SPONGE SZ 100 ONE ×3 (09:54→12:35)
[2019-01-26] MEDS ORDERED: BACITRACIN INJ 50,000 UNIT VIAL ONE (09:54)
[2019-01-26] MEDS ORDERED: THROMBIN FOR SOLN 20000 UNIT KIT ONE (09:54)
[2019-01-26] MEDS ORDERED: VANCOMYCIN HCL 1000MG/20ML VIAL ONE (09:54)
[2019-01-26] MEDS ORDERED: BUPIVACAINE 0.5 % 5 MG/1 ML MPF 30ML VIAL ONE (09:55)
--- NOTE | 2019-01-26 10:17 | History & Physical Bridge Note ---
Date of Service January 26, 2019 History & Physical Bridge Note I have examined the patient, reviewed the History & Physical and in the interval since the performance of the History & Physical I have noted the following changes of clinical significance: no changes noted
[2019-01-26] MEDS ORDERED: ePHEDrine sulfate 50 MG/ML AMP IV PRN (11:42)
[2019-01-26] MEDS ORDERED: HYDROmorphone INJ 1 MG/ML SYRINGE IV PRN (11:42)
[2019-01-26] MEDS ORDERED: ONDANSETRON INJ 2 MG/ML 2 ML VIAL IV PRN (11:42)
[2019-01-26] MEDS ORDERED: FLUMAZENIL 0.1 MG/1 ML 10 ML VIAL IV PRN (11:42)
[2019-01-26] MEDS ORDERED: LABETALOL HCL IV 5 MG/ML 20ML IV PRN (11:42)
[2019-01-26] MEDS ORDERED: ATROPINE SULFATE 0.1 MG/ML 10ML SYR IV PRN (11:42)
[2019-01-26] MEDS ORDERED: PROMETHAZINE HCL 12.5 MG in SODIUM CHLORIDE 0.9% 50 ML IV PRN ×2 (11:42→16:21)
[2019-01-26] MEDS ORDERED: NALOXONE HCL 0.4 MG/1 ML VIAL/CARP IV PRN ×2 (11:42→16:21)
[2019-01-26] MEDS ORDERED: KETAMINE HCL INJ 50 MG/ML 10 ML VIAL ONE (11:47)
[2019-01-26] MEDS ORDERED: ALBUMIN HUMAN 5% 12.5 GM/250 ML VIAL IV ONE (13:03)
[2019-01-26 13:16] LABS: Hematocrit (blood only) 37.1 % (42-52); Hemoglobin 12.4 g/dL (14.0-18.0)
[2019-01-26] MEDS ORDERED: CEFAZOLIN 250 MG/ML 1 GM VIAL ONE (14:01)
[2019-01-26] MEDS ORDERED: LABETALOL HCL IV 5 MG/ML 20ML IV ONE (14:04)
--- NOTE | 2019-01-26 14:15 | Fluoroscopy Report ---
FL spine 1V any level CLINICAL HISTORY: 63 years-old Male presenting with REMOVE HARDWARE L2-5/T11-L4 LAMINECTOMY FUSION. TECHNIQUE: 2 fluoroscopic image(s) recorded as part of an intraoperative procedure. COMPARISON: MR from 01/02/2019. FINDINGS/IMPRESSION: Posterior bilateral transpedicular Schoenrock fixation of the lumbar spine with an interbody spacer a nd laminectomy defects noted. Surgical sponges in place at the inferior margin of the surgical site. Multilevel spondylosis evident. Grossly normal anatomic alignment. Please see surgical report for further details. Fluoroscopy dosage (mGy): 7.54. Fluoroscopy time: 15.3 seconds. Number or time of high level fluoroscopy (HLF), digital spot, or digital subtraction images: 0. Electronically signed by: Satya Vickers M.D. 01/26/2019 2:14 PM
--- NOTE | 2019-01-26 14:19 | Post Operative Brief Note ---
PG Immediate Post Op with CF Date of Surgery January 26, 2019 Pre & Post Diagnosis Operation Date: 01/26/19 09:50 Pre-Op Diagnosis: Spinal Stenosis Post-Op Diagnosis: Spinal Stenosis I identified the patient and participated in the time-out.: Yes Procedure Operation Date: 01/26/19 09:50 Actual Procedures p Removal of pedicle screws L4-L5, removal of old jesus alberto L2-L3, laminectomy L2-L3, osteotomy L2-L3, correction of deformity, pedicle screw instrumentation T12-L1, L1-L2, L2-L3; posterior lumbar interbody fusion L2-L3 and L3-L4. (Not Applicable) - Abhijit Foley DO Surgeon Abhijit Foley DO [employer] Pack[employer] Machine Operator carlos eduardo Estimated Blood Loss 400 Findings Consistent with Post-Op Diagnosis Specimens Specimen Description: none Drains Camacho Catheter and Hemovac Drain Anesthesia Type General Disposition Accompanied Patient To Recovery: Yes Overlapping Procedure I was immediately available: during the entire case.
--- NOTE | 2019-01-26 14:34 | Operative Report ---
PG Post Operative Report Pre & Post Diagnosis Operation Date: 01/26/19 09:50 Pre-Op Diagnosis: Spinal Stenosis; spinal deformity fixed kyphosis, fixed scoliosis, instability graph Postop diagnosis same as above Post-Op Diagnosis: Spinal Stenosis Same as preop diagnosis I identified the patient and participated in the time-out.: Yes Procedure Operation Date: 01/26/19 09:50 Actual Procedures p Removal of pedicle screws L4-L5, removal of old jesus alberto L2-L3, laminectomy L2-L3, osteotomy L2-L3, correction of deformity, pedicle screw instrumentation T12-L1, L1-L2, L2-L3; posterior lumbar interbody fusion L2-L3 and L3-L4. (Not Applicable) - Abhijit Foley DO Surgeon Abhijit Foley DO Roof Slater carlos eduardo Estimated Blood Loss 400 Findings Consistent with Post-Op Diagnosis Specimens 0 Description of Procedure Patient was brought to the operating room a general intubated anesthetic provided to the patient. The catheter administered antibiotics administered placed prone in the Collin table Prepped and draped sterile scrub with Betadine and ChloraPrep. Formal timeout taken He was draped sterile we began our surgery. We first made a skin incision fashion incision came down on the lamina very difficult dissection scar tissue. We are able to get out over the facet joints and transverse processes and the 12th rib up at the T12 segment of the thoracic spine. Is able to expose all the old spinal implants. We first start with taking out the old implants I do had a go up on his spine further up the spinal canal and the implants would be in the way. I felt the patient was very solid from his old fusion that was expertly done fused solidly L4-5 and L3-4 he had iatrogenic its stability at L5-S1 and needed no fusion at this level. We safely get out the rods and the screws from L2-L5. Did not feel that the L5 and L4 screws needed to be replaced. We then decompress the neural elements doing a complete laminectomy of to a complete laminectomy of 3 This was Juan began our osteotomy actually had to work through the facet joint and isthmus of the vertebrae L2 again the correction. With various instrumentation distractor compressor osteotomes we were able to elevate up the disc interval on the patient's right-hand side begin with the correction. Then was able to place a dural body device by the Instapage in the L2-3 interval was 10 mm in height which elevate up the disc interval correcting the patient in both the coronal and sagittal planes. I then instrumented the spine safely getting pedicle screws up at 12 L1 and down the L2 and L3 laterally is anatomic guidelines C arm guidance with appropriate positioning of the pedicle screw device. I distracted on the patient's right-hand side which was the concavity of the curvature pressed on the convexity over the longitudinal rods placed in the thoracolumbar spine interbody device in place we locked down the construct I believe we had approximately 10 to 20 degree correction of our curvature. Lastly we bone grafted out of the transverse processes with a combination of allograft or demineralized bone matrix and personalized autograft. The Fusion Was Done T12 down to L3 Then irrigated thoroughly with approximately 500 to 600 cc of fluid he began our closure. We placed Gelfoam over the dural structures vancomycin deep to the wound close fascia fascia with 1 Vicryl suture 2 oh in stable going over over the skin surface. Sterile dressings applied. Patient return supine extubated to PACU stable Implants used by the Instapage pedicle screws and interbody device Bone graft use was morselized autograft and demineralized bone matrix Sponge needle count correct at the close of procedure complications 0 I attest to the content of the Intraoperative Record and any orders documented therein. Any exceptions are noted below.
[2019-01-26 14:56] LABS: Hematocrit (blood only) 36.2 % (42-52); Hemoglobin 12.3 g/dL (14.0-18.0)
[2019-01-26 15:52] LABS: iSTAT Creatinine 0.6 mg/dl (0.6-1.3); iSTAT Hemoglobin 11.9 g/dl (14.0-18.0); iSTAT Ionized Calcium 1.16 mmol/l (1.12-1.32); iSTAT Potassium 4.1 mEq/L (3.3-5.0)
[2019-01-26] MEDS ORDERED: MAGNESIUM HYDROXIDE SUSP 30 ML UDC PO PRN (16:21)
[2019-01-26] MEDS ORDERED: SOD PHOSPHATE/SOD BIPHOSPHATE ENEMA 132 ML BTL PR PRN (16:21)
[2019-01-26] MEDS ORDERED: METOCLOPRAMIDE HCL INJ 5 MG/ML 2 ML VIAL IV PRN (16:21)
[2019-01-26] MEDS ORDERED: HYDROmorphone INJ 0.5 MG/0.5 ML SYR IV PRN (16:21)
[2019-01-26] MEDS ORDERED: BISACODYL 10 MG SUPP PR PRN (16:21)
[2019-01-26] MEDS ORDERED: ONDANSETRON 4 MG OD TAB PO PRN (16:21)
[2019-01-26] MEDS ORDERED: ALUMINUM/MAGNESIUM SUSP 30 ML UDC PO PRN (16:21)
[2019-01-26] MEDS ORDERED: FAMOTIDINE 20 MG TAB PO PRN (16:21)
[2019-01-26] MEDS ORDERED: DO NOT ADMINISTER PNEUMOCOCCAL VACCINE PRN (16:21)
[2019-01-26] MEDS ORDERED: DO NOT ADMINISTER FLU VACCINE PRN (16:21)
[2019-01-26] MEDS ORDERED: ACETAMINOPHEN 1,000 MG/100 ML VIAL IV PRN (16:21)
--- NOTE | 2019-01-26 16:42 | Anesthesiology Progress Note ---
Date of Service January 26, 2019 Anesthesia Post Procedure Vital Signs Vital Signs: Temp Pulse Pulse Resp BP Pulse Ox 01/26/19 16:30 36.5 C 82 17 121/77 98 01/26/19 15:50 36.9 C 68 16 123/84 95 01/26/19 15:40 36.9 C 69 14 123/79 95 01/26/19 15:30 36.9 C 81 19 142/88 H 96 01/26/19 15:20 36.9 C 71 18 133/82 97 01/26/19 15:10 36.9 C 72 25 H 135/85 97 01/26/19 15:00 36.6 C 67 10 L 128/80 96 01/26/19 14:50 36.6 C 70 16 122/80 97 01/26/19 14:40 36.6 C 70 12 117/78 97 01/26/19 14:34 36.6 C 71 12 119/72 96 01/26/19 08:27 36.6 C 60 18 163/88 H 96 Transfer of Care Handoff Completed per policy Notes Mental Status: alert / awake / arousable and participated in evaluation Patient Amnestic to Procedure: Yes Nausea / Vomiting: adequately controlled Pain: adequately controlled Airway Patency, RR, SpO2: stable & adequate BP & HR: stable & adequate Hydration State: stable & adequate Anesthetic Complications: no major complications apparent
[2019-01-26] MEDS: CEFAZOLIN 2000MG 2,000 MG/15 ML SYR IV SCH (17:48)
[2019-01-26] MEDS: KETOROLAC 30 MG/ML VIAL IV SCH ×2 (17:48→22:32)
[2019-01-26] MEDS: ONDANSETRON INJ 2 MG/ML 2 ML VIAL IV PRN (17:59)
[2019-01-26] MEDS: LATANOPROST 0.005% OP SOLN 2.5 ML BTL OPB SCH (20:39)
[2019-01-26] MEDS: GABAPENTIN 600 MG TAB PO SCH (20:39)
[2019-01-26] MEDS: DOCUSATE SODIUM/SENNA 50/8.6MG TAB PO SCH (20:39)
[2019-01-26] MEDS: FEXOFENADINE HCL 180 MG TAB PO SCH (20:39)
[2019-01-26] MEDS: ASPIRIN 81 MG ECTAB PO SCH (20:39)
[2019-01-26] MEDS: LACTATED RINGER'S 1,000 ML IV SCH (22:32)
[2019-01-27] MEDS: CEFAZOLIN 2000MG 2,000 MG/15 ML SYR IV SCH (02:51)
[2019-01-27] MEDS: OXYCODONE HCL IR 5 MG TAB (IMMEDIATE RELEASE) PO PRN ×4 (02:51→23:08)
[2019-01-27] MEDS: KETOROLAC 30 MG/ML VIAL IV SCH ×2 (05:49→10:28)
[2019-01-27] MEDS: POLYETHYLENE (MIRALAX) 17 GM PACK PO SCH ×4 (05:49→23:08)
[2019-01-27] MEDS: LACTATED RINGER'S 1,000 ML IV SCH (05:52)
[2019-01-27 06:52] LABS: Basophils # (auto) 0.02 K/uL (0-0.2); Basophils % (auto) 0.2 %; Eosinophils # (auto) 0.01 K/uL (0-0.5); Eosinophils % (auto) 0.1 %; Hematocrit (blood only) 31.8 % (42-52); Hemoglobin 10.6 g/dL (14.0-18.0); Immature Granulocytes # (auto) 0.03 K/uL (0.00-0.02); Immature Granulocytes % (auto) 0.2 %; Lymphocytes # (auto) 1.66 K/uL (1.2-3.4); Lymphocytes % (auto) 12.5 %; Mean Corpuscular Hemoglobin 31.5 pg (25-34); Mean Corpuscular Hgb Conc 33.3 g/dL (32-36); Mean Corpuscular Volume 94.6 fL (80-100); Mean Platelet Volume 9.2 fL (7.4-10.4); Monocytes # (auto) 1.71 K/uL (0.11-0.59); Monocytes % (auto) 12.9 %; Neutrophils # (auto) 9.83 K/uL (1.4-6.5); Neutrophils % (auto) 74.1 %; Platelet Count 252 K/uL (130-400); RDW Standard Deviation 44.6 fL (36.4-46.3); Red Blood Count 3.36 M/uL (4.7-6.1); White Blood Count 13.26 K/uL (4.8-10.8)
[2019-01-27 07:20] LABS: BUN Creatinine Ratio 24.6 (10-20); Calcium 8.7 mg/dl (8.5-10.1); Creatinine Clr Calc Pharmacy 94.1 ml/min; Est GFR (African American) 108.8; Est GFR (Non-African American) 93.8; Potassium 3.9 mmol/L (3.5-5.1)
--- NOTE | 2019-01-27 08:02 | Orthopedic Progress Note ---
Date of Service January 27, 2019 Assessment & Plan (1) Lumbar stenosis: Status post major reconstructive spine surgery correction of scoliosis correction of kyphosis decompression is severe central canal stenosis lumbar spine Plan: We will get the patient up and out of bed here today try to get him ambulatory we will put in a note for discharge planning hopefully get him to a rehab center. Assessment will be will be Wednesday for 8 hours from now he will be stable for discharge Present on Admission?: Yes Review of Systems Review of Systems: Denies any fever sweats chills bowel bladder compromise Pain is tolerable Physical Exam Physical Exam: Vital signs stable alert oriented blood pressure control pulse controlled ; hemoglobin hematocrit stable Results & Data Vital Signs (Past 12 Hours) Vital Signs Temp Pulse Resp BP Pulse Ox 01/27/19 05:50 95 01/27/19 04:00 37.1 C 82 16 118/70 97 01/26/19 23:40 37.5 C 81 16 112/69 96 PG Care Time/CCT Total # of Minutes Spent Total Time Spent with Patient: Total time spent is greater than 50% in coordination of care (as documented) at patient's floor/unit and/or counseling patient:
--- NOTE | 2019-01-27 08:11 | Anesthesiology Progress Note ---
Date of Service January 27, 2019 Anesthesia Post Procedure Vital Signs Vital Signs: Temp Pulse Pulse Resp BP BP Pulse Ox 01/27/19 05:50 95 01/27/19 04:00 37.1 C 82 16 118/70 97 01/26/19 23:40 37.5 C 81 16 112/69 96 01/26/19 19:00 37.0 C 79 17 121/82 98 01/26/19 18:03 75 18 141/90 H 100 01/26/19 17:00 36.5 C 73 17 116/78 98 01/26/19 16:35 36.9 C 68 20 122/78 96 01/26/19 16:30 36.5 C 82 17 121/77 98 01/26/19 15:50 36.9 C 68 16 123/84 95 01/26/19 15:40 36.9 C 69 14 123/79 95 01/26/19 15:30 36.9 C 81 19 142/88 H 96 01/26/19 15:20 36.9 C 71 18 133/82 97 01/26/19 15:10 36.9 C 72 25 H 135/85 97 01/26/19 15:00 36.6 C 67 10 L 128/80 96 01/26/19 14:50 36.6 C 70 16 122/80 97 01/26/19 14:40 36.6 C 70 12 117/78 97 01/26/19 14:34 36.6 C 71 12 119/72 96 01/26/19 08:27 36.6 C 60 18 163/88 H 96 Pain Intensity Back: Pain Intensity: 5 Notes Mental Status: alert / awake / arousable and participated in evaluation Nausea / Vomiting: adequately controlled Pain: adequately controlled Airway Patency, RR, SpO2: stable & adequate BP & HR: stable & adequate Hydration State: stable & adequate Anesthetic Complications: see Notes below Notes: pt with c/o N/V post procedure. advised a note would be made in chart and to alert staff in future with general anesthestics. pt feeling fine this morning. tolerated clears with no problems.
[2019-01-27] MEDS: LOSARTAN POTASSIUM 25 MG TAB PO SCH (08:35)
[2019-01-27] MEDS: GABAPENTIN 600 MG TAB PO SCH ×3 (08:35→21:27)
[2019-01-27] MEDS: MULTIVITAMIN TAB PO SCH (08:35)
[2019-01-27] MEDS: PANTOprazole 40 MG TAB PO SCH (08:35)
[2019-01-27] MEDS ORDERED: POLYETHYLENE (MIRALAX) 17 GM PACK PO SCH (09:00)
[2019-01-27] MEDS: ONDANSETRON INJ 2 MG/ML 2 ML VIAL IV PRN (20:37)
[2019-01-27] MEDS: FEXOFENADINE HCL 180 MG TAB PO SCH (21:27)
[2019-01-27] MEDS: LATANOPROST 0.005% OP SOLN 2.5 ML BTL OPB SCH (21:27)
[2019-01-27] MEDS: DOCUSATE SODIUM/SENNA 50/8.6MG TAB PO SCH (21:27)
[2019-01-27] MEDS: ASPIRIN 81 MG ECTAB PO SCH (21:27)
[2019-01-28] MEDS: POLYETHYLENE (MIRALAX) 17 GM PACK PO SCH ×2 (05:29→10:52)
[2019-01-28 05:50] LABS: Basophils # (auto) 0.01 K/uL (0-0.2); Basophils % (auto) 0.1 %; Eosinophils # (auto) 0.34 K/uL (0-0.5); Eosinophils % (auto) 3.6 %; Hematocrit (blood only) 30.9 % (42-52); Hemoglobin 10.3 g/dL (14.0-18.0); Immature Granulocytes # (auto) 0.03 K/uL (0.00-0.02); Immature Granulocytes % (auto) 0.3 %; Lymphocytes # (auto) 1.27 K/uL (1.2-3.4); Lymphocytes % (auto) 13.5 %; Mean Corpuscular Hemoglobin 31.6 pg (25-34); Mean Corpuscular Hgb Conc 33.3 g/dL (32-36); Mean Corpuscular Volume 94.8 fL (80-100); Mean Platelet Volume 9.3 fL (7.4-10.4); Monocytes # (auto) 1.46 K/uL (0.11-0.59); Monocytes % (auto) 15.5 %; Neutrophils # (auto) 6.28 K/uL (1.4-6.5); Platelet Count 231 K/uL (130-400); RDW Coefficient of Variation 12.7 % (11.5-14.5); RDW Standard Deviation 43.8 fL (36.4-46.3); Red Blood Count 3.26 M/uL (4.7-6.1); White Blood Count 9.39 K/uL (4.8-10.8)
[2019-01-28 06:28] LABS: BUN Creatinine Ratio 19.3 (10-20); Calcium 8.6 mg/dl (8.5-10.1); Creatinine Clr Calc Pharmacy 100.1 ml/min; Est GFR (African American) 111.5; Est GFR (Non-African American) 96.2; Potassium 4.3 mmol/L (3.5-5.1)
[2019-01-28] MEDS: LOSARTAN POTASSIUM 25 MG TAB PO SCH (07:33)
[2019-01-28] MEDS: GABAPENTIN 600 MG TAB PO SCH ×3 (07:34→20:18)
[2019-01-28] MEDS: PANTOprazole 40 MG TAB PO SCH (07:34)
[2019-01-28] MEDS: OXYCODONE HCL IR 5 MG TAB (IMMEDIATE RELEASE) PO PRN ×3 (07:34→20:17)
[2019-01-28] MEDS: MULTIVITAMIN TAB PO SCH (07:34)
[2019-01-28] MEDS: LATANOPROST 0.005% OP SOLN 2.5 ML BTL OPB SCH (20:18)
[2019-01-28] MEDS: FEXOFENADINE HCL 180 MG TAB PO SCH (20:19)
[2019-01-28] MEDS: DOCUSATE SODIUM/SENNA 50/8.6MG TAB PO SCH (20:19)
[2019-01-28] MEDS: ASPIRIN 81 MG ECTAB PO SCH (20:20)
[2019-01-29] MEDS: OXYCODONE HCL IR 5 MG TAB (IMMEDIATE RELEASE) PO PRN ×2 (00:22→08:25)
[2019-01-29] MEDS: LOSARTAN POTASSIUM 25 MG TAB PO SCH (08:24)
[2019-01-29] MEDS: PANTOprazole 40 MG TAB PO SCH (08:25)
[2019-01-29] MEDS: GABAPENTIN 600 MG TAB PO SCH (08:25)
[2019-01-29] MEDS: MULTIVITAMIN TAB PO SCH (08:25)
--- NOTE | 2019-01-29 22:28 | Discharge Summary ---
He is alert, oriented, minimal complaints of pain. He had an uneventful course for a major reconstructive spine surgery in the thoracic and lumbar area. His wound is clean, dry. He is afebrile, alert, oriented. He will be discharged home this morning in improved stable condition. Followup examination in 2 weeks. He has instructions, precautions, education, prescriptions and a walker at home.
== END 2019-01-29 12:12 | disposition home or self-care (01) | DRG 460 ==
LOC: ASU 08:04 → 3E 14:36

== ENCOUNTER 2020-09-27 08:05 | Inpatient (IN) ==
--- NOTE | 2020-09-02 15:02 | PAT Medication Instructions ---
Medication Instructions Date of Service September 02, 2020 Home Medications Medication Instructions Recorded losartan 25 mg tablet 25 mg PO QAM #90 tab 03/04/20 celecoxib 100 mg capsule 100 mg PO BID #60 cap 07/02/20 cephalexin 500 mg PO Q6H 10 Days #40 cap 08/25/20 sulfamethoxazole-trimethoprim 1 tab PO BID 10 Days #20 tab 08/25/20 [Bactrim DS] aspirin 81 mg tablet,delayed release 81 mg PO QPM fexofenadine 180 mg tablet 180 mg PO QPM multivitamin 1 tab PO QAM polyethylene glycol 3350 17 gram/dose oral powder 17 gm PO QAM latanoprost 0.005 % eye drops 1 drops OPB QPM omeprazole 20 mg PO QAM losartan 25 mg tablet 25 mg PO QAM celecoxib 100 mg capsule 100 mg PO BID Probiotic 10,000 mmu cells PO QAM acetaminophen [Tylenol] 325 mg PO QID PRN cephalexin 500 mg PO Q6H 10 Days sulfamethoxazole-trimethoprim [Bactrim DS] 1 tab PO BID 10 Days gabapentin 600 mg PO BID sildenafil 20 mg PO DAILY PRN Continue as directed cephalexin 500 mg PO Q6H 10 Days sulfamethoxazole-trimethoprim [Bactrim DS] 1 tab PO BID 10 Days ASK your surgeon for instructions celecoxib 100 mg capsule 100 mg PO BID ASK your prescriber and surgeon aspirin 81 mg tablet,delayed release 81 mg PO QPM DO NOT take the morning of surgery multivitamin 1 tab PO QAM polyethylene glycol 3350 17 gram/dose oral powder 17 gm PO QAM losartan 25 mg tablet 25 mg PO QAM Probiotic 10,000 mmu cells PO QAM sildenafil 20 mg PO DAILY PRN Take morning of surgery With a small sip of water, OTHERWISE NOTHING TO EAT OR DRINK AFTER MIDNIGHT: omeprazole 20 mg PO QAM acetaminophen [Tylenol] 325 mg PO QID PRN (okay to take up to 4 hours prior to surgery if needed) gabapentin 600 mg PO BID Take evening before surgery fexofenadine 180 mg tablet 180 mg PO QPM latanoprost 0.005 % eye drops 1 drops OPB QPM acetaminophen [Tylenol] 325 mg PO QID PRN (if needed) gabapentin 600 mg PO BID sildenafil 20 mg PO DAILY PRN (if needed) Other Notes If you have any questions please call us at [phone] or [phone] or [phone] or [phone]
--- NOTE | 2020-09-06 13:53 | Anesthesiology Consultation ---
Date of Service September 06, 2020 Assessment & Plan (1) Encounter for pre-operative examination: - Abnormal preop testing: Preop CXR done 09/06 noted to have slightly hazy opacity within left lower lung (could be positional or represent prominence of pulmonary interstitium or atelectasis). Patient seeing PCP prior to upcoming surgery for preop evaluation. Will forward report to PCP. Awaiting surgeon- ordered PCP clearance as well as preop CXR response. - COVID screening: Per assessment on 09/06: Travel screen negative, no known COVID-19 positive contacts or current COVID-19 related symptoms. Surgeon arranging preop COVID testing. Awaiting results. - S/P lap cholecystectomy (07/15/20): Grade view 1, MAC #4 at [facility] Chart Review Chart Review: Patient seen in Pre Admission Testing Teaching & Discussion Pre-Anesthesia Teaching/Discussion Notes: Instructed NPO after midnight before surgery,except medications with 15 cc of water. Medication instructions provided according to the PAT guidelines. History Surgery Operation Date: 09/27/20 10:05 Proposed Procedures p L5-S1 Decompression and Fusion Spinal Cord Monitoring - Pedro Luis Wahl, Height/Weight Height: 5 ft 11 in Weight: 85.8 kg Allergies Allergy/AdvReac Type Severity Reaction Status Date / Time amoxicillin AdvReac Intermediate Rectal Verified 09/09/20 09:07 bleeding clavulanic acid AdvReac Intermediate Rectal Verified 09/09/20 09:07 bleeding Medications Home Medications Medication Instructions Recorded Confirmed Last Taken aspirin 81 mg tablet,delayed 81 mg PO QPM 12/13/17 09/09/20 08/24/20 release multivitamin 1 tab PO QAM 12/13/17 09/09/20 08/25/20 polyethylene glycol 3350 17 17 gm PO QAM gm 12/13/17 09/09/20 08/25/20 gram/dose oral powder latanoprost 0.005 % eye drops 1 drops OPB QPM 01/24/18 09/09/20 08/24/20 omeprazole 20 mg PO QAM 01/06/19 09/09/20 08/25/20 losartan 25 mg tablet 25 mg PO QAM #90 tab 03/04/20 09/09/20 08/25/20 celecoxib 100 mg capsule 100 mg PO BID #60 cap 07/02/20 09/09/20 08/25/20 Probiotic 10,000 mmu cells PO QAM 07/08/20 09/09/20 07/13/20 acetaminophen [Tylenol] 325 mg PO QID PRN 07/15/20 09/09/20 07/14/20 14:00 gabapentin 600 mg PO BID 09/02/20 09/09/20 Unknown Past Medical History Medical History Chronic anemia Degenerative disc disease GERD (gastroesophageal reflux disease) Glaucoma History of prostate cancer Hypertension Inguinal cyst Lumbar stenosis Scoliosis Sleep apnea Exercise / Class Metabolic Activity II 4-5 Yardwork/Stairs/Walk up hill (one FS (no CP, no SOB)) Past Family History Family History Father Coronary heart disease Parkinson disease Hypertension Sister Family history of diabetes mellitus Mother Family history of diabetes mellitus Lung cancer Brother Prostate cancer Grandfather (Paternal) Prostate cancer Other No pertinent family history Denies family history of Colon cancer Ovarian cancer Myocardial infarction Breast cancer Past Surgical History Surgical History History of cardiac cath History of colonoscopy History of esophagogastroduodenoscopy (EGD) History of herniorrhaphy History of lumbar laminectomy History of lumbar spinal fusion History of prostatectomy History of rotator cuff surgery History of shoulder surgery History of tonsillectomy History of tooth extraction S/P laparoscopic cholecystectomy Past Anesthesia History No Hx of Anesthesia Complications (except PONV) and No Family Hx of Anesthesia Complications (except sister (PONV)) History of PONV No Hx of Motion Sickness and History of PONV Social History Smoking Status: Never smoker Do You Dip or Chew Tobacco: No (Quit over 30 years ago) Hx Alcohol Use: No Hx Substance Use: No substance use type: does not use Review of Systems Patient denies chest pain, shortness of breath, dyspnea on exertion, fever, chills, cough, wheezing, palpitations. Physical Exam Vital Signs VITALS BP 125/73 P 67 TEMP 98.7 SP02 96%RA RESP 16 PHYSICAL Full cervical extension range of motion. Full TMJ range of motion. TMD 3 finger breaths Mallampati Score 2 Dentition: full dentures upper/lower Lungs: clear throughout to auscultation Cardiac: regular rate and rhythm (rare extra beat), no murmurs noted Spine: normal Carotid arteries: negative bruit Extremities: no edema Lab Results Anesthesia Preop Results Results Anesthesia Widget: Na 141 mmol/L (136-145) 08/25/20 K 3.7 mmol/L (3.5-5.1) 08/25/20 Cl 107 mmol/L (98-107) 08/25/20 CO2 26 mmol/L (21-32) 08/25/20 BUN 14 mg/dl (7-18) 08/25/20 Creat 0.62 mg/dl (0.6-1.4) 08/25/20 Glucose Level 98 mg/dl (70-99) 08/25/20 PT 9.9 Seconds (9.0-12.0) 09/06/20 PTT 24.8 Seconds (21.0-31.0) 09/06/20 INR 1.0 (0.9-1.1) 09/06/20 Urine Color Yellow 09/06/20 Urine Appearance Clear (Clear) 09/06/20 Urine pH 5.0 (4.5-7.5) 09/06/20 Urine Specific Villanueva 1.033 (1.000-1.030) H 09/06/20 Urine Protein Negative (Negative) 09/06/20 Urine Glucose (UA) Negative (Negative) 09/06/20 Urine Ketones Negative (Negative) 09/06/20 Urine Blood Negative (Negative) 09/06/20 Urine Nitrite Negative (Negative) 09/06/20 Urine Bilirubin Negative (Negative) 09/06/20 Urine Urobilinogen Negative (Negative) 09/06/20 Urine Leukocyte Esterase Negative (Negative) 09/06/20 Blood Type O Positive 09/06/20 Antibody Screen NEGATIVE 09/06/20 Testing Electrocardiogram Date: 09/09/20 NSR at 66bpm. NS TWA. unconfirmed report. Chest X-Ray Date: 09/06/20 Slightly hazy opacity within left lower lung, could be positional or represent prominence of pulmonary interstitium or atelectasis. Please correlate above-ment ioned findings with history of recent pulmonary infectious process. Echocardiogram Date: 12/26/15 LVEF 60-65%. No LVH. Type 1 diastolic dysfunction. Normal RVSP. No valvular or wall motion abnormalities. Stress Test Date: 11/24/17 Type: exercise Normal exercise ECHO without evidence of inducible ischemia. Grade I DD. Borderline cLVH. RVSP elevated at 30-40mmhg. 10.10 METS. EF 60-65%. 84%MPHR.
[~2020-09-27 08:05] MED LIST changes: -ACETAMINOPHEN 1,000 MG/100 ML VIAL IV SCH; -CEFAZOLIN 2000MG 2,000 MG/15 ML SYR IV SCH; +CLINDAMYCIN 600 MG/54 ML BAG IV SCH; +CeleBREX 200 MG CAP PO SCH; +GABAPENTIN 600 MG DOSE PO SCH; -SODIUM CHLORIDE 0.9% 1,000 ML IV SCH
[2020-09-27] MEDS ORDERED: PROPOFOL IV EMULSION 10 MG/ML 20 ML VIAL IV ONE (08:25)
[2020-09-27] MEDS ORDERED: LIDOCAINE 2% 2 ML VIAL/AMP(20MG/ML) INFIL ONE (08:25)
[2020-09-27] MEDS ORDERED: DEXAMETHASONE SOD INJ 4 MG/ML VIAL ONE (08:25)
[2020-09-27] MEDS ORDERED: ROCURONIUM BROMIDE 10 MG/ML 5 ML VIAL IV ONE (08:25)
[2020-09-27] MEDS ORDERED: ONDANSETRON INJ 2 MG/ML 2 ML VIAL ONE ×2 (08:25→12:01)
[2020-09-27] MEDS ORDERED: MIDAZOLAM HCL 1 MG/ML 2ML VIAL ONE (08:25)
[2020-09-27] MEDS ORDERED: fentaNYL citrate 100 MCG/2 ML VIAL ONE ×2 (08:25→12:07)
--- NOTE | 2020-09-27 09:15 | History & Physical Bridge Note ---
Date of Service September 27, 2020 History & Physical Bridge Note I have examined the patient, reviewed the History & Physical and in the interval since the performance of the History & Physical I have noted the following changes of clinical significance: no changes noted
--- NOTE | 2020-09-27 09:16 | History & Physical Report ---
Date of Service September 27, 2020 Assessment & Plan (1) Neurogenic claudication due to lumbar spinal stenosis: Plan: L5-S1 decompression fusion History of Present Illness Chief Complaint: Back and leg pain Primary Care Provider: Sergey Timmons III, ODELL This is a 65-year-old male who presents with chronic persistent back and leg pain after failing since course of nonoperative care is here for surgical invention. Allergies Allergy/AdvReac Type Severity Reaction Status Date / Time amoxicillin AdvReac Intermediate Rectal Verified 09/27/20 08:29 bleeding clavulanic acid AdvReac Intermediate Rectal Verified 09/27/20 08:29 bleeding Home Medications Medication Instructions Recorded Confirmed Type aspirin 81 mg tablet,delayed 81 mg PO QPM 12/13/17 09/27/20 History release (Adult Low Dose Aspirin) multivitamin 1 tab PO QAM 12/13/17 09/27/20 History polyethylene glycol 3350 17 17 gm PO QAM gm 12/13/17 09/27/20 History gram/dose oral powder (Miralax) latanoprost 0.005 % eye drops 1 drops OPB QPM 01/24/18 09/27/20 History omeprazole 20 mg capsule,delayed 20 mg PO QAM 01/06/19 09/27/20 History release losartan 25 mg tablet 25 mg PO QAM #90 tab 03/04/20 09/27/20 Rx celecoxib 100 mg capsule (Celebrex) 100 mg PO BID #60 cap 07/02/20 09/27/20 Rx Lactobacillus acidophilus 10 10,000 mmu cells PO QAM 07/08/20 09/27/20 History billion cell capsule (Probiotic) acetaminophen 325 mg tablet 325 mg PO QID PRN 07/15/20 09/27/20 History (Tylenol) gabapentin 600 mg tablet 600 mg PO BID 09/02/20 09/27/20 History Past Med/Surg History Medical History Chronic anemia Degenerative disc disease GERD (gastroesophageal reflux disease) Glaucoma History of prostate cancer Hypertension Inguinal cyst Lumbar stenosis Scoliosis Sleep apnea Surgical History History of cardiac cath History of colonoscopy History of esophagogastroduodenoscopy (EGD) History of herniorrhaphy History of lumbar laminectomy History of lumbar spinal fusion History of prostatectomy History of rotator cuff surgery History of shoulder surgery History of tonsillectomy History of tooth extraction S/P laparoscopic cholecystectomy Family History Father Coronary heart disease Parkinson disease Hypertension Sister Family history of diabetes mellitus Mother Family history of diabetes mellitus Lung cancer Brother Prostate cancer Grandfather (Paternal) Prostate cancer Other No pertinent family history Denies family history of Colon cancer Ovarian cancer Myocardial infarction Breast cancer Social History Smoking Status: Never smoker Second Hand Exposure: No; Do You Dip or Chew Tobacco: No (Quit over 30 years ago); Hx Alcohol Use: No Hx Substance Use: No Preferred Language: Mohawk Communication Ability: Effective Visual Impairment: No Limitations Hearing Ability: Normal 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 Beliefs That Will Affect Care: None marital status: Current Living Situation: Spouse current occupational status: employed current occupation: Daily vo Feels Safe at Home: Yes Safety Concerns: Feels Safe At This Time Dental Care, Regularly: No Physical Activity Frequency: Does not Exercise Seatbelt Use: always Assistive Devices: CPAP, Denture - Upper, Denture - Lower and Glasses Physical Exam Physical Exam: Patient is alert and oriented Heart regular in rhythm Lungs clear to auscultation Results & Data ([facility]) Vital Signs (Past 12 Hours) Vital Signs Temp Pulse Resp BP Pulse Ox 09/27/20 08:20 36.7 C 65 18 136/83 95
[2020-09-27] MEDS ORDERED: BUPIVACAINE/EPINEPHRINE 0.5% MPF 1:200,000 30 ML VIAL ONE (09:32)
[2020-09-27] MEDS ORDERED: SCOPOLAMINE 1 MG TDSY TD ONE (09:40)
[2020-09-27] MEDS ORDERED: ONDANSETRON INJ 2 MG/ML 2 ML VIAL IV PRN ×2 (09:43→14:13)
[2020-09-27] MEDS ORDERED: ATROPINE SULFATE 0.1 MG/ML 10ML SYR IV PRN (09:43)
[2020-09-27] MEDS ORDERED: GLYCOPYRROLATE 0.2 MG/ML VIAL ONE ×3 (10:28→13:42)
[2020-09-27] MEDS ORDERED: NEOSTIGMINE METHYLSULFATE 1 MG/ML 10ML VIAL ONE ×2 (10:28→13:42)
[2020-09-27] MEDS ORDERED: FLOSEAL HEMOSTATIC MATRIX 10ML TOP ONE (11:51)
--- NOTE | 2020-09-27 11:59 | Operative Report ---
Post Operative Report Pre & Post Diagnosis Operation Date: 09/27/20 09:45 Pre-Op Diagnosis: Spinal Stenosis, Lumbosacral Region Post-Op Diagnosis: Spinal Stenosis, Lumbosacral Region I identified the patient and participated in the time-out.: Yes Procedure Operation Date: 09/27/20 09:45 Actual Procedures #1 normal decompression with bilateral medial facetectomies and foraminotomies L5-S1. #2 posterior spinal fusion L5-S1. 3 placed posterior instrumentation of S1 per #4 interbody fusion L5-S1. #5 placement of peek cage 11 x 26 mm x 2 at L5-S1. #6 placement locally harvested morselized autograft in the posterior gutters. #7 placement infuse collagen sponge and master graft in the posterior lateral gutters and I factor and interbody space. Surgeon Pedro Luis Wahl, Vending Mechanic Donnell Hamilton Estimated Blood Loss 100 Findings Consistent with Post-Op Diagnosis Specimens None Indications This is a 65-year-old male who presents above-mentioned diagnosis after failing course of nonoperative care is here for the above-mentioned seizure. Description of Procedure Patient was met with identified informed consent obtained. Patient was then taken to the operative suite underwent ablation placed in a prone position injectable top Angel frame. All bony prominences well-padded eyes inspected to ensure no external pressure placed upon the. This point lumbar spine was prepped and draped in a sterile fashion. Sharp dissection with the assistance of Bovie cautery from down to and exposing the lamina and transverse processes of L5. From caudal cephalad fashion complete laminectomy of L5 was performed occluding bilateral medial facetectomies and foraminotomies addressing severe spinal stenosis. Pedicle screws were then placed in L5 and S1 levels bilaterally with assistance of fluoroscopy and appropriately sized jesus alberto placed. By way of a transforaminal approach on the right complete discectomy was performed endplates curetted to subcortically bone and an 11 x 26 mm peek cage filled with I factor tapped in position. Impression approach the transforaminal space on the left. And inserted a second 11 x 26 mm peek cage filled with I factor into position. The rods were then locked in final position bilaterally. The transverse processes of L5 and sacral ala burred to subcortical being bone. Infuse collagen sponge master graft local autograft was placed in the posterior gutters. 15 round WILBUR drain inserted. The incision was then closed with 1 Vicryl the fascia 2-0 Vicryl subcutaneously and 4 Monocryl for final skin closure. Steri-Strip sterile dressings placed. Patient will continue PACU stable condition. Please note spinal cord monitoring was utilized at the procedure no changes noted. Lastly Donnell Hamilton was present at the entire procedure and all the patient positioning complex portions of the surgery and final skin closure. I attest to the content of the Intraoperative Record and any orders documented therein. Any exceptions are noted below.
[2020-09-27] MEDS: HYDROmorphone INJ 1 MG/ML SYRINGE IV PRN ×3 (12:49→12:59)
--- NOTE | 2020-09-27 13:20 | Anesthesiology Progress Note ---
Date of Service September 27, 2020 Anesthesia Post Procedure Vital Signs Vital Signs: Temp Pulse Resp BP Pulse Ox 09/27/20 13:15 65 14 149/84 H 96 09/27/20 13:05 56 L 14 140/89 100 09/27/20 12:55 58 L 14 162/80 H 100 09/27/20 12:45 60 16 135/85 99 09/27/20 12:35 65 16 153/84 H 99 09/27/20 12:25 36.3 C L 77 16 142/86 H 99 09/27/20 08:20 36.7 C 65 18 136/83 95 Pain Intensity Bilateral Back: Pain Intensity: 6 Transfer of Care Handoff Completed per policy Notes Mental Status: alert / awake / arousable Patient Amnestic to Procedure: Yes Nausea / Vomiting: adequately controlled Pain: adequately controlled Airway Patency, RR, SpO2: stable & adequate BP & HR: stable & adequate Hydration State: stable & adequate Anesthetic Complications: no major complications apparent
[2020-09-27] MEDS ORDERED: ePHEDrine sulfate 50 MG/ML AMP ONE (13:49)
--- NOTE | 2020-09-27 14:02 | Fluoroscopy Report ---
[place] lumbar spine 2-3V CLINICAL HISTORY: L5-S1 DECOMPRESSION/FUSION COMPARISON STUDY: 04/25/2019 FLUOROSCOPY TIME: 22nd. NUMBER OF FLUOROSCOPIC IMAGES: 2 FINDINGS: 2 intraoperative fluoroscopic spot images are provided for interpretation. There are postsu rgical changes of L4-5 and L5-S1 discectomies interbody fusions. There is posterior spinal fusion wit h pedicle screw fixation at the L5-S1 level. L3 pedicle screws are also visualized. IMPRESSION: Intraoperative fluoroscopic spot images obtained status post L5-S1 spinal decompression and fusion. ACT 112: Negative or not required by law. Electronically signed by: Tyler Covarrubias M.D. 09/27/2020 2:01 PM
[2020-09-27] MEDS ORDERED: METOCLOPRAMIDE HCL INJ 5 MG/ML 2 ML VIAL IV PRN (14:13)
[2020-09-27] MEDS ORDERED: ONDANSETRON 4 MG OD TAB PO PRN (14:13)
[2020-09-27] MEDS ORDERED: ALUMINUM/MAGNESIUM SUSP 30 ML UDC PO PRN (14:13)
[2020-09-27] MEDS ORDERED: DO NOT ADMINISTER PNEUMOCOCCAL VACCINE PRN (14:13)
[2020-09-27] MEDS ORDERED: PROMETHAZINE HCL 12.5 MG in SODIUM CHLORIDE 0.9% 50 ML IV PRN (14:13)
[2020-09-27] MEDS ORDERED: ACETAMINOPHEN 1,000 MG/100 ML VIAL IV PRN (14:13)
[2020-09-27] MEDS ORDERED: MAGNESIUM HYDROXIDE SUSP 30 ML UDC PO PRN (14:13)
[2020-09-27] MEDS ORDERED: DO NOT ADMINISTER FLU VACCINE PRN (14:13)
[2020-09-27] MEDS ORDERED: HYDROmorphone INJ 0.5 MG/0.5 ML SYR IV PRN (14:13)
[2020-09-27] MEDS ORDERED: SOD PHOSPHATE/SOD BIPHOSPHATE ENEMA 132 ML BTL PR PRN (14:13)
[2020-09-27] MEDS ORDERED: LORazepam 0.5 MG TAB PO PRN (14:13)
[2020-09-27] MEDS ORDERED: traMADol HCL 50 MG TABLET PO PRN (14:13)
[2020-09-27] MEDS ORDERED: FAMOTIDINE 20 MG TAB PO PRN (14:13)
[2020-09-27] MEDS ORDERED: LORazepam 0.5 MG/1 ML VIAL IV PRN (14:13)
[2020-09-27] MEDS ORDERED: HYDROmorphone INJ 1 MG/ML SYRINGE IV PRN (14:13)
[2020-09-27] MEDS ORDERED: ACETAMINOPHEN 500 MG TAB PO PRN (14:13)
[2020-09-27] MEDS ORDERED: NALOXONE HCL 0.4 MG/1 ML VIAL/CARP IV PRN (14:13)
[2020-09-27] MEDS ORDERED: hydrOXYzine HCl 25 MG TAB PO PRN (14:13)
[2020-09-27] MEDS ORDERED: diphenhydrAMINE Capsule 25 MG CAP PO PRN (14:13)
[2020-09-27] MEDS: LACTATED RINGER'S 1,000 ML IV SCH ×2 (14:55→21:53)
[2020-09-27] MEDS: KETOROLAC TROMETHAMINE 15 MG/ML VIAL IV SCH ×3 (15:06→23:42)
[2020-09-27] MEDS: oxyCODONE HCL IR 5 MG TAB (IMMEDIATE RELEASE) PO PRN (17:43)
[2020-09-27] MEDS: CLINDAMYCIN 600 MG in DEXTROSE 5% 50 ML IV SCH (17:44)
[2020-09-27] MEDS: DOCUSATE SODIUM/SENNA 50/8.6MG TAB PO SCH (20:52)
[2020-09-27] MEDS: LATANOPROST 0.005% OP SOLN 2.5 ML BTL OPB SCH (20:52)
[2020-09-27] MEDS: GABAPENTIN 600 MG TAB PO SCH (20:53)
[2020-09-27] MEDS: ASPIRIN 81 MG ECTAB PO SCH (20:53)
[2020-09-28] MEDS: CLINDAMYCIN 600 MG in DEXTROSE 5% 50 ML IV SCH (01:42)
[2020-09-28] MEDS: KETOROLAC TROMETHAMINE 15 MG/ML VIAL IV SCH (05:15)
[2020-09-28] MEDS: POLYETHYLENE (MIRALAX) 17 GM PACK PO SCH ×6 (05:20→23:04)
[2020-09-28 05:42] LABS: Basophils # (auto) 0.02 K/uL (0-0.2); Basophils % (auto) 0.2 %; Eosinophils # (auto) 0.13 K/uL (0-0.5); Eosinophils % (auto) 1.4 %; Hematocrit (blood only) 29.1 % (42-52); Hemoglobin 9.8 g/dL (14.0-18.0); Immature Granulocytes # (auto) 0.02 K/uL (0.00-0.02); Immature Granulocytes % (auto) 0.2 %; Lymphocytes # (auto) 0.73 K/uL (1.2-3.4); Lymphocytes % (auto) 7.6 %; Mean Corpuscular Hemoglobin 31.9 pg (25-34); Mean Corpuscular Hgb Conc 33.7 g/dL (32-36); Mean Corpuscular Volume 94.8 fL (80-100); Mean Platelet Volume 8.5 fL (7.4-10.4); Monocytes # (auto) 1.15 K/uL (0.11-0.59); Neutrophils # (auto) 7.55 K/uL (1.4-6.5); Neutrophils % (auto) 78.6 %; Platelet Count 189 K/uL (130-400); RDW Coefficient of Variation 13.4 % (11.5-14.5); RDW Standard Deviation 46.3 fL (36.4-46.3); Red Blood Count 3.07 M/uL (4.7-6.1)
[2020-09-28 06:14] LABS: BUN Creatinine Ratio 24.6 (10-20); Calcium 8.3 mg/dl (8.5-10.1); Creatinine Clr Calc Pharmacy 100.6 ml/min; Est GFR (Non-African American) 94.9 ml/min; Potassium 4.1 mmol/L (3.5-5.1)
[2020-09-28] MEDS: MULTIVITAMIN TAB PO SCH (08:51)
[2020-09-28] MEDS: LOSARTAN POTASSIUM 25 MG TAB PO SCH (08:51)
[2020-09-28] MEDS: PANTOprazole 40 MG TAB PO SCH (08:51)
[2020-09-28] MEDS: GABAPENTIN 600 MG TAB PO SCH ×2 (08:51→21:04)
[2020-09-28] MEDS ORDERED: NON-FORMULARY MEDICATION (Lactobacillus Acidophilus [Probiotic] 10 billion cell Capsule) PO SCH (09:00)
--- NOTE | 2020-09-28 09:15 | Orthopedic Progress Note ---
Date of Service September 28, 2020 Assessment & Plan (1) Neurogenic claudication due to lumbar spinal stenosis: Plan: This time we will continue physical therapy monitor his WILBUR operatively discharge home in the next few days. Admission and Anticipated Discharge Date Admission Date: September 27, 2020 Subjective Patient's back pain is controlled leg symptoms markedly improved. He struggling with some urinary retention. Physical Exam Physical Exam: Patient has good strength testing. Appears comfortable. Results & Data ([facility]) Vital Signs (Past 12 Hours) Vital Signs Temp Pulse Resp BP Pulse Ox 09/28/20 07:52 36.7 C 57 L 16 108/60 98 09/28/20 06:07 36.6 C 57 L 16 106/59 L 97 09/28/20 02:28 36.8 C 67 16 101/56 L 95 09/27/20 22:33 36.7 C 69 16 157/81 H 97
--- NOTE | 2020-09-28 11:44 | Hospitalist Consultation ---
Date of Consultation September 28, 2020 Assessment & Plan (1) Neurogenic claudication due to lumbar spinal stenosis: S/P #1 normal decompression with bilateral medial facetectomies and foraminotomies L5-S1. #2 posterior spinal fusion L5-S1. 3 placed posterior instrumentation of S1 per #4 interbody fusion L5-S1. #5 placement of peek cage 11 x 26 mm x 2 at L5-S1. #6 placement locally harvested morselized autograft in the posterior gutters. #7 placement infuse collagen sponge and master graft in the posterior lateral gutters and I factor and interbody space. DVT prophylaxis per priary service (2) Hypertension: BP at goal. resume losartan (3) Acid reflux disease: Resume omeprazole will continue to monitor. Thank you for letting us participate in the care of the above patient. Will sign off the case at this time. Please reconsult for any further questions. History of Present Illness Reason for Consultation: Medical management Attending Physician: Pedro Luis Wahl DO History of Present Illness This is a pleasant 65 yo male who is hospitalized for lumbar stenosis and is S/P the following: #1 normal decompression with bilateral medial facetectomies and foraminotomies L5-S1. #2 posterior spinal fusion L5-S1. 3 placed posterior instrumentation of S1 per #4 interbody fusion L5-S1. #5 placement of peek cage 11 x 26 mm x 2 at L5-S1. #6 placement locally harvested morselized autograft in the posterior gutters. #7 placement infuse collagen sponge and master graft in the posterior lateral gutters and I factor and interbody space. Patient has PMH of hypertension, SARAH, prediabetes. Aside from pain S/P the surgery, he denies any symptoms of nausea, vomiting, chest pain, fever, chills. Allergies Allergy/AdvReac Type Severity Reaction Status Date / Time amoxicillin AdvReac Intermediate Rectal Verified 09/27/20 08:29 bleeding clavulanic acid AdvReac Intermediate Rectal Verified 09/27/20 08:29 bleeding Home Medications Medication Instructions Recorded Confirmed Type aspirin 81 mg tablet,delayed 81 mg PO QPM 12/13/17 09/27/20 History release (Adult Low Dose Aspirin) multivitamin 1 tab PO QAM 12/13/17 09/27/20 History polyethylene glycol 3350 17 17 gm PO QAM gm 12/13/17 09/27/20 History gram/dose oral powder (Miralax) latanoprost 0.005 % eye drops 1 drops OPB QPM 01/24/18 09/27/20 History omeprazole 20 mg capsule,delayed 20 mg PO QAM 01/06/19 09/27/20 History release losartan 25 mg tablet 25 mg PO QAM #90 tab 03/04/20 09/27/20 Rx celecoxib 100 mg capsule (Celebrex) 100 mg PO BID #60 cap 07/02/20 09/27/20 Rx Lactobacillus acidophilus 10 10,000 mmu cells PO QAM 07/08/20 09/27/20 History billion cell capsule (Probiotic) acetaminophen 325 mg tablet 325 mg PO QID PRN 07/15/20 09/27/20 History (Tylenol) gabapentin 600 mg tablet 600 mg PO BID 09/02/20 09/27/20 History oxycodone 5 mg tablet 5 mg PO Q6H PRN #30 tab 09/27/20 Rx tramadol 50 mg tablet 50 mg PO Q6H PRN #30 tab 09/27/20 Rx Patient History Medical History Chronic anemia No hx blood transfusions Degenerative disc disease GERD (gastroesophageal reflux disease) controlled Glaucoma History of prostate cancer s/p prostatectomy (no chemo or xrt) Hypertension Inguinal cyst resolved s/p I&D and abx Lumbar stenosis Scoliosis Sleep apnea CPAP (occasional) Surgical History History of cardiac cath 2008 ([place]) > no stents (Mild luminal irregularities) History of colonoscopy History of esophagogastroduodenoscopy (EGD) History of herniorrhaphy x3 (umbilical) History of lumbar laminectomy Revision with pedicle screw instrumentation T12-L3 (02/2019) History of lumbar spinal fusion History of prostatectomy Laparoscopic History of rotator cuff surgery R/L History of shoulder surgery Left shoulder I&D History of tonsillectomy History of tooth extraction S/P laparoscopic cholecystectomy Lap cholecystectomy (07/15/20): Grade view 1, MAC #4 at [facility] Family History Father Coronary heart disease Parkinson disease Hypertension Sister Family history of diabetes mellitus Mother Family history of diabetes mellitus Lung cancer Brother Prostate cancer Grandfather (Paternal) Prostate cancer Other No pertinent family history Denies family history of Colon cancer Ovarian cancer Myocardial infarction Breast cancer Social History Smoking Status: Never smoker Second Hand Exposure: No; Do You Dip or Chew Tobacco: No (Quit over 30 years ago); Hx Alcohol Use: No Hx Substance Use: No Preferred Language: Palauan Communication Ability: Effective Visual Impairment: No Limitations Hearing Ability: Normal Pain Management Physician Required: No Beliefs That Will Affect Care: None marital status: Current Living Situation: Spouse current occupational status: employed current occupation: Daily vo Feels Safe at Home: Yes Safety Concerns: Feels Safe At This Time Dental Care, Regularly: No Physical Activity Frequency: Does not Exercise Seatbelt Use: always Assistive Devices: None Review of Systems Review of Systems: All systems reviewed & are unremarkable except as noted in HPI & below Physical Exam Constitutional: WD/WN, vitals as above Eyes: PERRL, conjunctivae normal, anicteric sclerae ENMT: external ear and nose normal, oropharynx normal Neck: trachea midline, no thyromegaly Respiratory: normal respiratory effort, lungs clear to auscultation Cardiovascular: RRR, no murmur, no edema Gastrointestinal (Abdomen): normal bowel sounds, soft, nontender, no hepatosplenomegaly Musculoskeletal: no cyanosis or clubbing, extremities motor strength 5/5 Skin: no rashes, warm and dry Neurologic: PERRL, EOMI, accommodation nl, no face palsy, no dysarthria Psychiatric: A+Ox3, euthymic affect Lymphatic: no cervical or axillary lymphadenopathy Results & Data Results & Data ([facility]) Vital Signs (Past 12 Hours) Vital Signs Temp Pulse Resp BP Pulse Ox 09/28/20 07:52 36.7 C 57 L 16 108/60 98 09/28/20 06:07 36.6 C 57 L 16 106/59 L 97 09/28/20 02:28 36.8 C 67 16 101/56 L 95 PG Care Time/CCT Total # of Minutes Spent Total Time Spent with Patient: Total time spent is greater than 50% in coordination of care (as documented) at patient's floor/unit and/or counseling patient: Coding Level of Care Code 31587 Inpt Consult Level 3 Diagnoses Neurogenic claudication due to lumbar spinal stenosis M48.062 Hypertension I10 Acid reflux disease K21.9
[2020-09-28] MEDS: ASPIRIN 81 MG ECTAB PO SCH (21:05)
[2020-09-28] MEDS: LATANOPROST 0.005% OP SOLN 2.5 ML BTL OPB SCH (21:05)
[2020-09-28] MEDS: DOCUSATE SODIUM/SENNA 50/8.6MG TAB PO SCH (21:05)
[2020-09-29] MEDS: POLYETHYLENE (MIRALAX) 17 GM PACK PO SCH ×2 (05:59→12:30)
[2020-09-29] MEDS ORDERED: bisacodyL 10 MG SUPP PR PRN (08:00)
[2020-09-29] MEDS: PANTOprazole 40 MG TAB PO SCH (08:20)
[2020-09-29] MEDS: GABAPENTIN 600 MG TAB PO SCH (08:20)
[2020-09-29] MEDS: MULTIVITAMIN TAB PO SCH (08:20)
[2020-09-29] MEDS: LOSARTAN POTASSIUM 25 MG TAB PO SCH (08:20)
[2020-09-29] MEDS: oxyCODONE HCL IR 5 MG TAB (IMMEDIATE RELEASE) PO PRN (08:23)
[2020-09-29] MEDS ORDERED: dexAMETHasone 8 MG in SYRINGE 0 ML IV SCH (09:00)
--- NOTE | 2020-09-29 10:54 | Discharge Summary ---
Date of Service September 29, 2020 Admission HPI Per Admitting Provider This is a 65-year-old male who presents with chronic persistent back and leg pain after failing since course of nonoperative care is here for surgical invention. Principal Diagnosis Lumbar spinal stenosis with neurogenic claudication Discharge Data Allergies Allergy/AdvReac Type Severity Reaction Status Date / Time amoxicillin AdvReac Intermediate Rectal Verified 09/27/20 08:29 bleeding clavulanic acid AdvReac Intermediate Rectal Verified 09/27/20 08:29 bleeding Consultations 09/27/20 14:13 Consult Hospitalist Routine Procedures Performed Operation Date: 09/27/20 09:45 Actual Procedures p L5-S1 Decompression and Fusion, Spinal Cord Monitoring, Application of BMP, Interbody at L5-S1(Not Applicable) - Pedro Luis Wahl DO Ordered Studies 09/27/20 07:00 FL lumbar spine 2-3V Routine Hospital Course (1) Neurogenic claudication due to lumbar spinal stenosis: Patient underwent lumbar decompression fusion tolerated this well was taken to orthopedic for postop labor postop and was up and ambulating progressed to postop day #2. WILBUR drain decreasing probably. Pain well controlled. Excellent strength testing. Subsequent discharge home. Discharge orders instructions from the chart for further review. Total Time Total Time Spent Total Time Spent (In Minutes): 20 minutes Discharge Plan Discharge Items Patient Disposition: Home - Self-Care Reason For Visit: Spinal Stenosis, Lumbosacral Region Discharge Diagnosis: Lumbar spine stenosis with neurogenic claudication Activity: As commented below Non-emergency contact: Primary Care Provider Call non-emergency contact if: you have any medication questions Follow-up/Referrals: Sergey Timmons III, CRNP [Primary Care Provider] - Diet: Regular Addtl Attending Provider Instructions: ACTIVITY RECOMMENDATIONS: SELF CARE INSTRUCTIONS AFTER THORACIC/LUMBAR FUSIONS 1. You may walk to your tolerance. It is good exercise for your legs and back. Expect some back and intermittent leg aches and pains. 2. You may perform "counter-top" level activities (make a sandwich, jessica with a project, etc.). 3. No bending or lifting of more than 10 pounds or back twisting of any nature (roll like a log when turning in bed). 4. You may ride in a car for 20-30 minutes at a time. No driving until after your first visit with your doctor. 5. Frequent changes of position and restricting sitting to 30 minutes at a time will help limit the amount of back spasms and stiffness you may experience. 6. You may discontinue the use of ambulatory aids (cane, crutches, etc.) once your strength and confidence allow. 7. You may certified nursing attendant the shower and let water strike your incision when you arrive home at least once daily. Do not take a tub bath, sit in a hot tub or go into a swimming pool until after your first recheck in the office. SPECIAL CARE INSTRUCTIONS: VERY IMPORTANT TO READ AND REVIEW A. Your surgical incision has been closed with a cosmetic suture under the skin that will dissolve in about 6 weeks. In 14 days, you can use a pair of clean scissors and cut the suture that is left outside of the skin at the ends of your incision. 1. The small skin tapes can be removed 7 days after surgery if they have not fallen off by that point. 2. You may keep the wound open to air as much as possible to promote healing after post-op day number 5 unless told otherwise by your doctor. 3. If you think the wound looks like it is becoming infected (redness or worsening drainage) and/or you are experiencing fever, chill or worsening back pain and muscle spasms, contact the office so that we may evaluate you as soon as possible. B. Complications are uncommon, but please contact us if you have any signs or symptoms of: 1. wound infection (fever higher than 102.5 degrees F, redness, separation of wound, drainage, or increasing pain from the incision) 2. blood clots in legs (pain, swelling, redness and warmth in legs) 3. urinary tract infection (fever higher than 102.5 degrees F, burning upon urination or increased frequency of urination) 4. nerve problems (inability to walk on your toes or heels, numbness, loss of bowel or bladder control) 5. any other symptoms that concern you C. Please call the office at if you have any concerns or questions about your operation or recovery. D. No smoking! Smoking drastically decreases the chance of a solid fusion. E. Do not take any anti-inflammatory medications (Indocin, Advil, Motrin, Aspirin, Naprosyn, etc.) as these may inhibit the chance of a solid fusion. Tylenol is okay to take for pain. MANAGING PAIN AFTER SPINAL SURGERY 1. Narcotic medication is intended for short-term use and will be provided for surgical pain. Surgical pain usually lasts for a period of 4-6 weeks. Narcotic medication includes Percocet, Vicodin, Darvocet, Tylenol #3 or Lortab. 2. Longer-term pain is more appropriately treated with non-narcotic medication such as Tylenol ES. 3. Muscle spasm is not appropriately treated with narcotics. Muscle relaxers such as Soma, Flexeril or Skelaxin can be used along with Tylenol ES. 4. Remember that we all live with some "aches and pains". This is not unusual or uncommon after an injury or as we get older. a. Back pain is expected and may include muscle spasms for 4 to 6 weeks after surgery. The pain should gradually improve. If the pain worsens for no apparent reason, please contact the office. b. Intermittent leg pain may also be experienced and should not be concerned about unless it worsens for no apparent reason. If so, please contact the office. 5. We will provide appropriate medication within the normal guidelines of their prescribed use. We will also be very cautious and aware of potential abuse and extended duration of patients' medication needs. a. Pain medications are for your comfort and to assist with sleep and rest so that the tissue can heal. They are not provided in order to return to normal activity and should not be used through the day. To do so or worsening pain at night can result from ongoing tissue damage and development of tolerance to the prescribed medicine. 6. Please allow 2-3 days to process refills. Prescriptions will not be mailed but must be picked up at the office. FOLLOW UP VISIT: Keep your scheduled follow-up appointment. Any questions, please call the office at . Pending Studies at Discharge: No Stand-Alone Forms: My [facility] [place] Medications and DC Order Prescriptions: New tramadol 50 mg tablet 50 mg PO Q6H PRN (Reason: pain, moderate) Qty: 30 RF: 0 oxycodone 5 mg tablet 5 mg PO Q6H PRN (Reason: pain, severe) Qty: 30 RF: 0 Continued multivitamin tablet 1 tab PO QAM RF: 0 aspirin [Adult Low Dose Aspirin] 81 mg tablet,delayed release (DR/EC) 81 mg PO QPM RF: 0 polyethylene glycol 3350 [Miralax] 17 gram/dose powder 17 gm PO QAM RF: 0 latanoprost 0.005 % drops 1 drops OPB QPM RF: 0 losartan 25 mg tablet 25 mg PO QAM Qty: 90 RF: 1 celecoxib [Celebrex] 100 mg capsule 100 mg PO BID Qty: 60 RF: 2 omeprazole 20 mg Capsule,Delayed Release(Dr/Ec) 20 mg PO QAM RF: 0 gabapentin 600 mg tablet 600 mg PO BID RF: 0 Probiotic 10 billion cell Capsule 10,000 mmu cells PO QAM RF: 0 acetaminophen [Tylenol] 325 mg Tablet 325 mg PO QID PRN (Reason: Pain) RF: 0 Discharge Orders: Discharge Order (Routine); Ordered 09/29/20 Ordered By: Pedro Luis Wahl Admission Data Admit Date/Time: 09/27/20 12:02 Attending Provider: Pedro Luis Wahl Admit Provider: Pedro Luis Wahl Primary Care Provider: Sergey Timmons III Other Providers: Michael Montes
== END 2020-09-29 15:39 | disposition home or self-care (01) | DRG 455 ==
LOC: ASU 08:05 → 3E 12:02